=== PATIENT | male | born 1940 | race Asian ===

== ENCOUNTER 2017-04-28 23:55 | Observation (INO) | payer OTHER ==
[~2017-04-28] VITALS: Ht 152.4 cm; Wt 58.0 kg
[2017-04-29] VITALS (13 sets, daily range): BP systolic 115–159; BP diastolic 70–96; PULSE 84–105; RESP 11–23; TEMP 98.2; Ht 152.4 cm; Wt 58.0 kg
--- NOTE | 2017-04-29 00:57 | RADRPT ---
PROCEDURE: XR Chest. CLINICAL INDICATION: Chest pain TECHNIQUE: Single frontal view of the chest was obtained COMPARISON: None FINDINGS: Hypoinflation of the lungs. Patchy densities in the right upper lobe and bilateral lower lungs consi stent with atelectasis and/or infiltrates. Calcification in thoracic aorta. Minimal ectasia of the t horacic aorta apparent. The heart does not appear to be grossly enlarged. ECG leads projected over t he chest. There is no pleural effusion or pneumothorax seen. IMPRESSION: Hypoinflation of the lungs. Patchy densities in the right upper lobe and bilateral lower lungs consi stent with atelectasis and/or infiltrates. RPTAT: HJES .Maik Edward MD, MD Date Time Electronically viewed and signed by .Maik Edward MD, on 04/29/2017 00:56 .S/
[2017-04-29 00:58] LABS: BASOPHILS % 0.4 % (0.0-2.0); EOSINOPHILS # 0.1 10^3/ul (0.0-0.5); EOSINOPHILS % 1.2 % (0.0-7.0); HEMATOCRIT 42.7 % (42.0-52.0); HEMOGLOBIN 14.5 g/dl (14.0-18.0); LYMPHOCYTES # 2.7 10^3/ul (0.8-2.9); LYMPHOCYTES % 23.9 % (15.0-51.0); MEAN CORPUSCULAR HEMOGLOBIN 30.9 pg (29.0-33.0); MEAN CORPUSCULAR VOLUME 90.9 fl (82.0-101.0); MEAN PLATELET VOLUME 9.8 fl (7.4-10.4); MONOCYTES % 9.1 % (0.0-11.0); NEUTROPHIL # 7.2 10^3/ul (1.6-7.5); NEUTROPHILS % 64.8 % (39.0-77.0); PLATELET COUNT 224 10^3/UL (140-415); RED CELL DISTRIBUTION WIDTH 12.6 % (11.5-14.5); WHITE BLOOD COUNT 11.1 10^3/ul (4.8-10.8)
--- NOTE | 2017-04-29 01:09 | ERD ---
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 Patient has history of RI. Pain is mild to moderate intensity, substernal, crushing with no exacerbating relieving factors. No nausea no vomiting no chills. No other current complaints. ROS All systems reviewed and are negative except as per history of present illness. Allergies Allergies: Coded Allergies: No Known Drug Allergy (Verified Allergy, Unknown, 04/29/17) Physical Exam Vitals Vital Signs Date Time Temp Pulse Resp B/P Pulse Ox O2 Delivery O2 Flow Rate FiO2 04/29/17 00:00 97.0 85 18 134/68 98 Physical Exam Const: [] Head: Atraumatic Eyes: Normal Conjunctiva ENT: Normal External Ears, Nose and Mouth. Neck: Full range of motion..~ No meningismus. Resp: Clear to auscultation bilaterally Cardio: Regular rate and rhythm, no murmurs Abd: Soft, non tender, non distended. Normal bowel sounds Skin: No petechiae or rashes Back: No midline or flank tenderness Ext: No cyanosis, or edema Neur: Awake and alert Psych: Normal Mood and Affect Result Diagram: 04/29/177 04/29/177 Results 24 hrs Laboratory Tests Test 04/29/17 00:37 White Blood Count 11.110^3/ul Red Blood Count 4.7010^6/ul Hemoglobin 14.5g/dl Hematocrit 42.7% Mean Corpuscular Volume 90.9fl Mean Corpuscular Hemoglobin 30.9pg Mean Corpuscular Hemoglobin Concent 34.0g/dl Red Cell Distribution Width 12.6% Platelet Count 51849^3/UL Mean Platelet Volume 9.8fl Neutrophils % 64.8% Lymphocytes % 23.9% Monocytes % 9.1% Eosinophils % 1.2% Basophils % 0.4% Nucleated Red Blood Cells % 0.0/100WBC Neutrophils # 7.210^3/ul Lymphocytes # 2.710^3/ul Monocytes # 1.010^3/ul Eosinophils # 0.110^3/ul Basophils # 0.010^3/ul Nucleated Red Blood Cells # 0.010^3/ul Sodium Level 140mmol/L Potassium Level 3.2mmol/L Chloride Level 106mmol/L Carbon Dioxide Level 22mmol/L Anion Gap 15 Blood Urea Nitrogen 22mg/dl Creatinine 1.26mg/dl Glucose Level 77mg/dl Calcium Level 9.3mg/dl Creatine Kinase 238IU/L Creatine Kinase Index 0.4 Creatinine Kinase MB (Mass) 1.01ng/ml Troponin I < 0.012ng/ml Current Medications Medications (Trade) Dose Ordered Sig/Alex Route PRN Reason Start Time Stop Time Status Last Admin Dose Admin Azithromycin 500 mg 500 mg ONCE STAT PO 04/29/17 02:18 04/29/17 02:22 DC Ceftriaxone Sodium (Rocephin) 50 ml @ 100 mls/hr ONCE STAT IVPB 04/29/17 02:18 04/29/17 02:47 Miscellaneous Information (* Miscellaneous Pharmacy Order) Discontinue current oral sulfonylur... ONCE ONCE XX 04/29/17 02:30 04/29/17 02:31 UNV Diagnostic Test (Pha) (Accu-Chek) 1 ea 02 XX 04/30/17 02:00 UNV Miscellaneous Information (* Miscellaneous Pharmacy Order) HYPOGLYCEMIA PROTOCOL w... ONCE ONCE XX 04/29/17 02:30 04/29/17 02:31 UNV Insulin Aspart (Novolog Insulin Pen) NOVOLOG *MILD* ALGORITHM WITH MEALS BEDTIME SC 04/29/17 08:00 UNV Miscellaneous Information (* Miscellaneous Pharmacy Order) Discontinue all previ... ONCE ONCE XX 04/29/17 02:30 04/29/17 02:31 UNV Insulin Detemir (Levemir) 8 unit Q24H SC 04/29/17 02:30 UNV Aspirin (Aspirin) 81 mg DAILY PO 04/29/17 09:00 UNV Acetaminophen (Tylenol Tab) 650 mg Q4H PRN PO pain/fever 04/29/17 03:00 UNV Ondansetron HCl (Zofran Inj) 4 mg Q4H PRN IV nausea 04/29/17 03:00 UNV Morphine Sulfate (morphine) 2 mg Q2H PRN IV pain 04/29/17 03:00 UNV Hydralazine HCl (Apresoline) 25 mg Q6H PRN PO sbp>160 04/29/17 03:00 UNV Guaifenesin/ Dextromethorphan (Robitussin Dm Liquid Cup) 10 ml Q4H PRN PO cough 04/29/17 03:00 UNV Procedures/MDM EKG: Rate/Rhythm: [Normal Sinus Rhythm] QRS, ST, T-waves: [No changes consistent w/ acute ischemia] Impression: [No evidence of ischemia or arrhythmia] Chest X-ray 1V Interpreted by me: Soft Tissue: No acute abnormalities Bones: No acute abnormalities Mediastinum/Cardiac Silhouette/Lungs: Patchy infiltrates bilaterally Patient's symptoms are concerning for cardiac cause will require inpatient workup and continuous monitoring. Further w/u for ischemia, arrhythmia, PE or dissection will be deferred to the inpatient team. Treated for bilateral pneumonia with broad-spectrum antibiotics post blood culture Accepting Care Team: Current data and ongoing care discussed. Time: 1 AM Primary Provider: Hospitalist Consulting: [XOXOXO] Outstanding Data: none Departure Diagnosis: Primary Impression: Chest pain Chest pain type: unspecified Qualified Code: R07.9 - Chest pain, unspecified type Additional Impression: Bilateral pneumonia Pneumonia type: due to unspecified organism Lung location: unspecified part of lung Qualified Code: J18.9 - Pneumonia of both lungs due to infectious organism, unspecified part of lung Condition: Serious ZAHRA CAMPBELL Apr 29, 2017 01:09
[2017-04-29 01:11] LABS: CREATINE KINASE 238 IU/L (23-200)
[2017-04-29 01:25] LABS: CK-MB 1.01 ng/ml (0.0-2.4); TROPONIN-I < 0.012 ng/ml (0.00-0.12)
[2017-04-29] MEDS ORDERED: CEFTRIAXONE 1 GM/50 ML (PMX) 50 ML IVPB STA (02:18)
[2017-04-29] MEDS ORDERED: AZITHROMYCIN 250 MG TAB PO STA (02:18)
--- NOTE | 2017-04-29 02:32 | QN ---
Documentation Comment H&P dict a/p 1. cards chest pain (H=2, E=0, A=2, R=2, T=0), serial trop, risk factor modification, cards eval 2. dm 3. htn 4. pvd TRAV CORONA MD Apr 29, 2017 02:32
[2017-04-29 02:34] LABS: CALCIUM 9.3 mg/dl (8.4-10.2); CREATININE 1.26 mg/dl (0.61-1.24); POTASSIUM 3.2 mmol/L (3.5-5.1)
[2017-04-29] MEDS ORDERED: SPIR25TA PO (02:47)
[2017-04-29] MEDS ORDERED: CARV3.1260 PO (02:47)
[2017-04-29] MEDS ORDERED: SIMV20TA2 PO (02:47)
[2017-04-29] MEDS ORDERED: SITA100T8 PO (02:47)
[2017-04-29] MEDS ORDERED: MELO-216 PO (02:47)
[2017-04-29] MEDS ORDERED: ISOS60TA PO (02:47)
[2017-04-29] MEDS ORDERED: FURO20TA3 PO (02:47)
[2017-04-29] MEDS ORDERED: CILO100T PO (02:47)
[2017-04-29] MEDS ORDERED: CLOP75TA28 PO (02:47)
[2017-04-29] MEDS ORDERED: ALFU10TA2 PO (02:47)
[2017-04-29] MEDS ORDERED: MONT10TA24 PO (02:47)
[2017-04-29] MEDS ORDERED: ONDANSETRON 4 MG INJ IV PRN (03:00)
[2017-04-29] MEDS ORDERED: GUAIFENESIN/DM 5ML CUP PO PRN (03:00)
[2017-04-29] MEDS ORDERED: morphine 2 MG INJ IV PRN (03:00)
[2017-04-29] MEDS ORDERED: ACETAMINOPHEN 325 MG TAB PO PRN ×2 (03:00→17:00)
[2017-04-29] MEDS ORDERED: DEXTROSE 50% 50 ML SYRINGE IV PRN ×2 (03:00)
[2017-04-29] MEDS ORDERED: GLUCOSE GEL 15 GRAM TUBE BUCCAL PRN (03:00)
[2017-04-29] MEDS ORDERED: GLUCOSE GEL 15 GRAM TUBE PO PRN ×2 (03:00)
[2017-04-29] MEDS ORDERED: GLUCAGON 1 MG INJ IM PRN (03:00)
[2017-04-29] MEDS: INSULIN DETEMIR [LEVEMIR] 3ML CART SC SCH (04:18)
[2017-04-29] MEDS: POTASSIUM CHLORIDE (SR) 20 MEQ TAB PO SCH ×4 (04:22→08:02)
[2017-04-29 05:59] LABS: CREATINE KINASE 173 IU/L (23-200)
[2017-04-29 06:26] LABS: CK-MB 0.93 ng/ml (0.0-2.4); TROPONIN-I < 0.012 ng/ml (0.00-0.12)
[2017-04-29] MEDS: INSULIN ASPART [NOVOLOG] 3 ML PEN SC SCH ×3 (07:21→21:00)
--- NOTE | 2017-04-29 07:56 | HP ---
DATE OF ADMISSION: 04/28/2017 CHIEF COMPLAINT: Chest pain. HISTORY OF PRESENTING ILLNESS: The patient presents to the emergency room at [facility] a 2-hour history of chest pain which he describes as central and crushing with some associated sh ortness of breath. No nausea, vomiting, diaphoresis. PAST MEDICAL HISTORY: Significant for coronary artery disease, status post coronary artery bypass g rafting, diabetes, hypertension, hyperlipidemia, peripheral vascular disease. MEDICATIONS: As outpatient include: 1. Insulin, unknown type or dose. 2. Zocor 20 mg daily. 3. Lasix 20 mg daily. 4. Coreg 3.125 mg b.i.d. 5. Pletal 50 mg daily. 6. Aldactone 25 mg daily. 7. Other undisclosed medications, but the patient cannot recall. ALLERGIES: NO KNOWN DRUG ALLERGIES. SOCIAL HISTORY: The patient lives at home with his son and [id number]. Independent of activit ies of daily living. Denies tobacco, alcohol or illicit drug use. FAMILY HISTORY: Noncontributory. REVIEW OF SYSTEMS: Five systems reviewed and found not to be revealing. PHYSICAL EXAMINATION: VITAL SIGNS: Blood is 134/68, pulse rate 85, respirations 18, temperature is 97. GENERAL: Elderly man in no acute distress. Alert and oriented x3, speaking only. HEENT: Normocephalic, atraumatic without evident scleral icterus, perioral cyanosis. Mucous membra uma are moist. NECK: Soft and supple without masses. No evidence of jugular venous distention or carotid bruits. CHEST: Clear to auscultation and percussion bilaterally. HEART: Regular rate and rhythm, S1, S2, no added sounds. ABDOMEN: Soft, nontender, nondistended without palpable hepatosplenomegaly. EXTREMITIES: Without clubbing, cyanosis or edema. SKIN: Without rashes. NEUROLOGIC: Grossly intact. LABORATORY STUDIES: Reveal hemoglobin 14.5 g/dL, white count 11,100, platelets of 224,000. BMP is pending. Troponin is negative. EKG does not reveal any ischemic changes. Chest x-ray shows no acu te cardiopulmonary disease by my read though the radiologist calls patchy densities in the right upp er lobe consistent with possible infiltrates versus atelectasis. ASSESSMENT AND PLAN: 1. Cardiac: The patient with chest pain. We will plan to further evaluate with serial troponins, echocardiogram, stress testing and cardiology evaluation. 2. Pulmonary: Patchy infiltrates. Plan CT scan of chest to further evaluate. 3. Diabetes: Manage with Accu-Cheks and sliding scale. Dictated By: TRAV CORONA MD RER/NTS Conf#: [id number] DID#: [id number]
[2017-04-29] MEDS ORDERED: CILOSTAZOL 100 MG TAB PO SCH (09:00)
[2017-04-29] MEDS ORDERED: CLOPIDOGREL 75 MG TAB PO SCH (09:00)
--- NOTE | 2017-04-29 09:05 | RADRPT ---
PROCEDURE: CT Chest without IV contrast - high-resolution CLINICAL INDICATION: Patchy infiltrates on x-ray TECHNIQUE: CT of the chest without IV contrast. High resolution images obtained during both deep i nspiration and full expiration. Coronal and sagittal reformatted images. One or more of the followin g dose reduction techniques were used: automated exposure control, adjustment of the mA and/or kV ac cording to patient size, use of iterative reconstruction technique. DICOM images are available. CTDI 10.24, 3.23 mGy, DLP 480.01 mGy-cm. COMPARISON: Chest x-ray, 04/29/2017 FINDINGS: Lungs: Areas of interstitial thickening and mild traction bronchiectasis are seen bilaterally, pred ominantly in the lung periphery and at the lung bases, suggestive of mild pulmonary fibrosis. No foc al acute infiltrate, pleural effusion, pulmonary edema or pneumothorax is identified. No suspicious pulmonary nodule or mass lesion is identified. Cardiovascular: Normal heart size. Coronary arterial and aortic atherosclerotic calcifications. No thoracic aortic aneurysm. Lymph nodes: No adenopathy. Mediastinum: Normal Upper abdomen: Scattered colonic diverticula, without diverticulitis. Musculoskeletal: Degenerative enthesopathy of the spine. Other: None IMPRESSION: 1. Findings compatible with mild pulmonary fibrosis, as above. 2. No mass, lymphadenopathy, or focal acute infiltrate is seen. 3. Coronary arterial and aortic atherosclerotic calcifications are present. 4. Scattered colonic diverticula are seen without diverticulitis. RPTAT: AAQQ .Diaz Ramos MD, MD Date Time Electronically viewed and signed by .Diaz Ramos MD, on 04/29/2017 09:05 .R/
[2017-04-29] MEDS: SPIRONOLACTONE 25 MG TAB PO SCH (09:09)
[2017-04-29] MEDS: ISOSORBIDE MONONITRATE(SR)60 MG TAB PO SCH (09:10)
[2017-04-29] MEDS: ATORVASTATIN 10 MG TAB PO SCH (09:11)
[2017-04-29] MEDS: ASPIRIN 81 MG TAB PO SCH (09:13)
[2017-04-29 11:15] LABS: CALCIUM 9.1 mg/dl (8.4-10.2); CREATININE 1.03 mg/dl (0.61-1.24); MAGNESIUM 2.2 mg/dl (1.7-2.5); POTASSIUM 4.5 mmol/L (3.5-5.1)
[2017-04-29 11:24] LABS: CREATINE KINASE 159 IU/L (23-200)
[2017-04-29 11:43] LABS: CK-MB 0.89 ng/ml (0.0-2.4); TROPONIN-I < 0.012 ng/ml (0.00-0.12)
--- NOTE | 2017-04-29 12:57 | RADRPT ---
Echocardiogram Report Patient Name: GLADIS CARLSON Gender: Male Date: 1940 Study Date: 29-Apr-2017 Information Systems Audit Manager: Steve Ruiz [facility] Location: [facility] Ref. Physician: TRAV CORONA Quality: Good Procedures: Transthoracic echocardiogram with complete 2D, M-Mode, and doppler examination. Indications: Chest Pain. 2D/M Mode Doppler Measurement Value Normal Ranges Measurement Value Normal Ranges LVIDd 2D 4.7 3.5 - 5.6 cm AV Peak Gage 1.7 m/sec LVIDs 2D 2.6 2.1 - 4.1 cm AV Peak PG 12.0 mmHg LVPWd 2D 1.2 0.6 - 1.1 cm LVOT Peak Gage 0.7 m/sec IVSd 2D 1.2 0.6 - 1.1 cm LVOT Peak PG 2.1 mmHg AoR Diam 2D 3.4 2.0 - 3.7 cm MV E Peak Gage 0.6 m/sec EDV 2D 101.5 cm3 MV A Peak Gage 1.1 m/sec ESV 2D 17.3 cm3 MV E/A 0.5 LA Dimen 2D 2.7 2.3 - 4.0 cm MV Decel Time 90 msec MV Decel Chaffee 6 MV E/A 0.5 TR Peak Gage 2.7 m/sec TR Peak PG 29.4 mmHg RVSP 32.0 mmHg Findings Left Ventricle: Normal left ventricular cavity size. Mild concentric left ventricular hypertrophy. Mild left ventricular systolic dysfunction. Ejection fraction is visually estimated at 4045 %. Tissue Doppler/Mitral Doppler indices are consistent with impaired relaxation (Stage I diastolic dysfunction). Right Ventricle: Normal right ventricular size. Normal right ventricular systolic function. Left Atrium: The left atrium is normal in size. Right Atrium: The right atrium is normal in size. Mitral Valve: Mitral valve leaflets appear mildly thickened. Mild mitral annular calcification. Mild mitral valve regurgitation. Aortic Valve: No significant aortic stenosis or insufficiency. Aortic cusps appear mildly calcified. Tricuspid Valve: Normal appearance of the tricuspid valve. Estimated peak PA systolic pressure 32 mmHg. There is mild tricuspid regurgitation. Pulmonic Valve: Normal pulmonic valve appearance. Pericardium: Normal pericardium with no significant pericardial effusion. Aorta: Normal aortic root. IVC: Normal size and normal respiratory collapse consistent with normal right atrial pressure. Conclusions 1.Normal left ventricular cavity size. Mild concentric left ventricular hypertrophy. Mild left ventricular systolic dysfunction. Ejection fraction is visually estimated at 40-45 %. Tissue Doppler/Mitral Doppler indices are consistent with impaired relaxation (Stage I diastolic dysfunction). 2.Normal right ventricular size. Normal right ventricular systolic function. 3.The left atrium is normal in size. 4.The right atrium is normal in size. 5.Mild mitral valve regurgitation. 6.Estimated peak PA systolic pressure 32 mmHg. There is mild tricuspid regurgitation. 7.No significant aortic stenosis or insufficiency. 8.Normal pericardium with no significant pericardial effusion. Electronically Signed By: Joshua Collins 29-Apr-2017 12:56:34 -0800 Patient Name: GLADIS CARLSON Study Date: 29-Apr-2017 [id number]
[2017-04-29] MEDS ORDERED: REGADENOSON 0.4 MG/5 ML SYG ONE (14:10)
--- NOTE | 2017-04-29 14:15 | CONS ---
Date/Time of Note Date/Time of Note DATE: 04/29/17 TIME: 13:45 Assessment/Plan Assessment/Plan Additional Assessment/Plan Chest pain Hypertension Diabetes Cardiomyopathy with ejection fraction 40-45% Peripheral arterial disease based on history Left bundle branch block on ECG -Patient with intermittent symptoms off and on over the past 2 years. Serial cardiac enzymes remain negative, echocardiogram with cardiomyopathy with ejection fraction 40-45%. Continue antiplatelet therapy, statin therapy, blood pressure control, nuclear cardiac perfusion study has been ordered. Consultation Date/Type/Reason Admit Date/Time Type of Consultation: cv Reason for Consultation Chest pain Hx of Present Illness This is a 77-year-old male past medical history of hypertension, diabetes, dyslipidemia, peripheral arterial disease who presents with symptoms of chest discomfort yesterday. Patient has been having chest pain going on for 2 years now. Symptoms at times at rest. Activity does not usually exacerbate his symptoms of chest pain. Yesterday evening, patient with symptoms of chest discomfort. There was no associated shortness of breath or nausea. Because of the severity of the symptoms, he came to the emergency room for evaluation and care. He currently denies any chest pain or shortness of breath. 12 point review of systems was performed with all pertinent positives and negatives mentioned above and all else is negative Past Medical History Medical History: diabetes, high cholesterol, hypertension, other (Peripheral arterial disease) Family History Significant Family History: no pertinent family hx Social History Alcohol Use: none Smoking Status: Former smoker Exam/Review of Systems Vital Signs Vitals Vital Signs Date Time Temp Pulse Resp B/P Pulse Ox O2 Delivery O2 Flow Rate FiO2 04/29/17 11:30 74 15 120/67 95 Nasal Cannula 2.0 04/29/17 06:05 98.2 Exam No apparent distress Constitutional: alert, oriented Head: normocephalic Neck: supple Respiratory: other (Coarse breath sounds bilaterally, no wheezing) Cardiovascular: other (S1-S2 heard), regular rate and rhythm, systolic murmur Gastrointestinal: bowel sounds, non-tender, soft Extremities: edema (Trivial) Results Result Diagram: 04/29/17 0037 04/29/17 1032 Results 24 hrs Laboratory Tests Test 04/29/17 00:37 04/29/17 03:01 04/29/17 04:17 04/29/17 05:20 White Blood Count 11.1 H Red Blood Count 4.70 Hemoglobin 14.5 Hematocrit 42.7 Mean Corpuscular Volume 90.9 Mean Corpuscular Hemoglobin 30.9 Mean Corpuscular Hemoglobin Concent 34.0 Red Cell Distribution Width 12.6 Platelet Count 224 Mean Platelet Volume 9.8 Neutrophils % 64.8 Lymphocytes % 23.9 Monocytes % 9.1 Eosinophils % 1.2 Basophils % 0.4 Nucleated Red Blood Cells % 0.0 Neutrophils # 7.2 Lymphocytes # 2.7 Monocytes # 1.0 H Eosinophils # 0.1 Basophils # 0.0 Nucleated Red Blood Cells # 0.0 Sodium Level 140 Potassium Level 3.2 L Chloride Level 106 Carbon Dioxide Level 22 Anion Gap 15 Blood Urea Nitrogen 22 H Creatinine 1.26 H Glucose Level 77 Calcium Level 9.3 Creatine Kinase 238 H 173 Creatine Kinase Index 0.4 0.5 Creatinine Kinase MB (Mass) 1.01 0.93 Troponin I < 0.012 < 0.012 B-Type Natriuretic Peptide 75 Bedside Glucose 144 Test 04/29/17 07:21 04/29/17 10:32 04/29/17 11:21 Bedside Glucose 127 97 Sodium Level 140 Potassium Level 4.5 Chloride Level 108 Carbon Dioxide Level 25 Anion Gap 12 Blood Urea Nitrogen 16 Creatinine 1.03 Glucose Level 132 # Calcium Level 9.1 Magnesium Level 2.2 Creatine Kinase 159 Creatine Kinase Index 0.6 Creatinine Kinase MB (Mass) 0.89 Troponin I < 0.012 Medications Medications Current Medications Diagnostic Test (Pha) (Accu-Chek) 1 ea 02 XX ; Start 04/30/17 at 02:00 Insulin Detemir (Levemir) 8 unit Q24H SC Last administered on 04/29/17 04:18; Admin Dose 8 UNIT; Start 04/29/17 at 02:30 Aspirin (Aspirin) 81 mg DAILY PO Last administered on 04/29/17 09:13; Admin Dose 81 MG; Start 04/29/17 at 09:00 Acetaminophen (Tylenol Tab) 650 mg Q4H PRN PO pain/fever; Start 04/29/17 at 03: 00 Ondansetron HCl (Zofran Inj) 4 mg Q4H PRN IV nausea; Start 04/29/17 at 03:00 Morphine Sulfate (morphine) 2 mg Q2H PRN IV pain; Start 04/29/17 at 03:00 Hydralazine HCl (Apresoline) 25 mg Q6H PRN PO sbp>160; Start 04/29/17 at 03:00 Guaifenesin/ Dextromethorphan (Robitussin Dm Liquid Cup) 10 ml Q4H PRN PO cough ; Start 04/29/17 at 03:00 Miscellaneous Information 1 ea NOTE XX ; Start 04/29/17 at 03:00 Glucose (Glutose) 15 gm Q15M PRN PO DECREASED GLUCOSE; Start 04/29/17 at 03:00 Glucose (Glutose) 22.5 gm Q15M PRN PO DECREASED GLUCOSE; Start 04/29/17 at 03: 00 Dextrose (D50w Syringe) 25 ml Q15M PRN IV DECREASED GLUCOSE; Start 04/29/17 at 03:00 Dextrose (D50w Syringe) 50 ml Q15M PRN IV DECREASED GLUCOSE; Start 04/29/17 at 03:00 Glucagon (Glucagen) 1 mg Q15M PRN IM DECREASED GLUCOSE; Start 04/29/17 at 03:00 Glucose (Glutose) 15 gm Q15M PRN BUCCAL DECREASED GLUCOSE; Start 04/29/17 at 03 :00 Alfuzosin HCl (Uroxatral) 10 mg 21 PO ; Start 04/29/17 at 21:00 Carvedilol (Coreg) 3.125 mg DAILY PO Last administered on 04/29/17 09:11; Admin Dose 3.125 MG; Start 04/29/17 at 09:00 Cilostazol (Pletal) 50 mg BID PO Last administered on 04/29/17 09:10; Admin Dose 50 MG; Start 04/29/17 at 09:00 Clopidogrel Bisulfate (plaVIX) 75 mg DAILY PO Last administered on 04/29/17 09 :12; Admin Dose 75 MG; Start 04/29/17 at 09:00 Isosorbide Mononitrate (Imdur) 60 mg DAILY PO Last administered on 04/29/17 09 :10; Admin Dose 60 MG; Start 04/29/17 at 09:00 Montelukast Sodium (Singulair) 10 mg QHS PO ; Start 04/29/17 at 21:00 Spironolactone (Aldactone) 25 mg DAILY PO Last administered on 04/29/17 09:09 ; Admin Dose 25 MG; Start 04/29/17 at 09:00 Atorvastatin Calcium (Lipitor) 10 mg DAILY PO Last administered on 04/29/17t 09 :11; Admin Dose 10 MG; Start 04/29/17 at 09:00 Procedures Procedures ECG sinus rhythm, left bundle branch block, nonspecific ST abnormalities Joshua Collins DO Apr 29, 2017 14:05
[2017-04-29] MEDS ORDERED: ALBUTEROL/IPRATROPIUM (NEB) 3 ML AMP HHN PRN (14:30)
--- NOTE | 2017-04-29 16:03 | PDOCDIS ---
Discharge Instructions DIAGNOSIS Discharge Diagnosis Chest pain at rest and short of breath off and on for 2 years CONDITION Patient Condition: Fair HOME CARE INSTRUCTIONS: Diet Instructions: Diabetic and 2 gm Sodium diet ACTIVITY: Activity Restrictions: Slowly Increase Activity (activity as tolerate) FOLLOW UP/APPOINTMENTS Follow-up Plan Follow up with his PCP in 1 week REFERRALS Other Referrals Cardiac rehabilitation as an outpatient. OTHER ORDERS: Other Orders: Home oxygen using 23 hrs av day if SAO2<88% while walking ARCELIA ORTIZ MD Apr 29, 2017 16:03
[2017-04-29] MEDS ORDERED: HEPARIN 1000 UNITS/ML 10 ML INJ ONE (16:07)
[2017-04-29] MEDS ORDERED: LIDOCAINE 1% (MDV) 20 ML INJ ONE (16:07)
[2017-04-29] MEDS ORDERED: SYMB80120 INHALATION (16:08)
[2017-04-29] MEDS ORDERED: MIDAZOLAM 1 MG/ML 2 ML INJ ONE (16:08)
[2017-04-29] MEDS ORDERED: VERAPAMIL 5 MG INJ ONE (16:08)
[2017-04-29] MEDS ORDERED: FENTAnyl 50 MCG/ML VIAL ONE (16:08)
[2017-04-29] MEDS ORDERED: IODIXANOL LOCM 100 ML BTL ONE (16:32)
--- NOTE | 2017-04-29 16:35 | DS ---
Date/Time of Note Date/Time of Note DATE: 04/29/17 TIME: 16:10 Discharge Summary Admission/Discharge Info Admit Date/Time 04/28/2017 Discharge Date/Time 04/29/2017 Discharge Diagnosis Chest pain at rest and short of breath off and on for 2 years Patient Condition: Good Consults Dr. Joshua Collins Procedures Echocardiogram showed 40-45 % EF,mild elevated RVSP Hx of Present Illness This is a 77 years old [place] man with significant medical illness of hypertension,type 2 DM with dyslipidemia,PVD,chronic systolic dysfunction on Lasix ans Aldactone, He has been having short of breath at rest off and on for 2 years. He has been using diuretic at home with stable condition. Yesterday , he was admitted her due to chest tightness on both lungs and short of breath at rest. At ER,he got CTA showed mild pulmonary fibrosis but no PE nor pneumonia. Echocardiogram showed 40-45% EF and mild elevated RSVP. Normal EKG and negative serial troponin levels. His chest pain and short of breath were resolved. g. Vital Signs Date Time Temp Pulse Resp B/P Pulse Ox O2 Delivery O2 Flow Rate FiO2 04/29/17 11:30 74 15 120/67 95 Nasal Cannula 2.0 04/29/17 06:05 98.2 Const: He is alert and oriented to time ,place and person. He is not in acute distress. No pallor nor jaundice Head: Atraumatic and normocephalic. Eyes: Normal Conjunctiva ENT: Normal External Ears, Nose and Mouth. Neck: Full range of motion. No meningismus. Resp: Clear to auscultation bilaterally. No wheezes nor crackles on both lung ashby. Cardio: Regular rate and rhythm, no murmurs. Abd: Soft, non tender, non distended. Normal bowel sounds. Skin: No petechiae or rashes. Back: No midline or flank tenderness. Ext: no cyanosis, or edema Neuro: Awake and alert. No grossly neurological deficit Psych: [Normal Mood and Affect Hospital Course While he has been here,he has been given 2 L nasal canula oxygen and fluid restriction. His chest pain and short of breath were resolved. No PND nor orthopnea. No fever nor chill. CT chest showed mild pulmonary fibrosis but no pneumonia. Echocardiogram showed 40-45% EF and mild elevated RSVP. Plavix,Lipitor,Coreg ,Lasix and Aldactone resumed. Walking pulse Ox tested . If SAO2<88% while walking then he will be qualified. 2 gm sodium ,low cholesterol ,and 1800 diabetic diet Increased daily activity ( outpatient cardiac rehabilitation) Home Meds Active Scripts Nitroglycerin (Nitrostat) 0.4 Mg Subl, 0.4 MG SL Q5MIN Y for CHEST PAIN, #30 TAB 3 Refills Prov:KALENBRODIE 04/30/17 Aspirin* (Ecotrin*) 325 Mg Tablet.dr, 325 MG PO DAILY for 30 Days, #30 TAB 3 Refills Prov:ARCELIA ORTIZ MD 04/30/17 Budesonide-Formoterol Fumarate* (Symbicort*) 80-4.5 Inha, 2 PUFFS INHALATION BID for 30 Days, #1 EACH Prov:ARCELIA ORTIZ MD 04/29/17 Reported Medications Isosorbide Mononitrate* (Isosorbide Mononitrate*) 60 Mg Tab.er.24h, 60 MG PO DAILY, TAB 04/29/17 Alfuzosin Hcl* (Alfuzosin Hcl*) 10 Mg Tab.er.24h, 10 MG PO DAILY, #30 TAB.SA 04/29/17 Sitagliptin* (Januvia*) 100 Mg Tablet, 100 MG PO DAILY, #30 TAB 04/29/17 Montelukast Sodium* (Montelukast Sodium*) 10 Mg Tablet, 10 MG PO QHS, #30 TAB 04/29/17 Cilostazol* (Cilostazol*) 100 Mg Tablet, 50 MG PO BID, TAB 04/29/17 Simvastatin (Simvastatin) 20 Mg Tablet, 20 MG PO DAILY, #30 TAB 04/29/17 Spironolactone* (Aldactone*) 25 Mg Tablet, 25 MG PO DAILY, #30 TAB 04/29/17 Carvedilol* (Carvedilol*) 3.125 Mg Tablet, 3.125 MG PO DAILY, #60 TAB 04/29/17 Furosemide* (Furosemide*) 20 Mg Tablet, 20 MG PO DAILY, #60 TAB 04/29/17 Discontinued Reported Medications Clopidogrel Bisulfate (Clopidogrel) 75 Mg Tablet, 75 MG PO DAILY, #30 TAB 04/29/17 Meloxicam* (Meloxicam*) 7.5 Mg Tablet, 7.5 MG PO DAILY, #30 TAB 04/29/17 Furosemide* (Furosemide*) 20 Mg Tablet, 20 MG PO DAILY, #60 TAB 04/29/17 Follow-up Plan Follow up with his PCP in 1 week. Jawbone Breaker follow up with in 1-2 week Outpatient cardiac rehabilitation in 1-2 week Time spent on discharge: > 30 minutes Pending Labs Laboratory Tests Test 04/29/17 00:37 04/29/17 03:01 04/29/17 04:17 04/29/17 05:20 White Blood Count 11.110^3/ul (4.8-10.8) Red Blood Count 4.7010^6/ul (4.70-6.10) Hemoglobin 14.5g/dl (14.0-18.0) Hematocrit 42.7% (42.0-52.0) Mean Corpuscular Volume 90.9fl (82.0-101.0) Mean Corpuscular Hemoglobin 30.9pg (29.0-33.0) Mean Corpuscular Hemoglobin Concent 34.0g/dl (32.0-37.0) Red Cell Distribution Width 12.6% (11.5-14.5) Platelet Count 07437^3/UL (140-415) Mean Platelet Volume 9.8fl (7.4-10.4) Neutrophils % 64.8% (39.0-77.0) Lymphocytes % 23.9% (15.0-51.0) Monocytes % 9.1% (0.0-11.0) Eosinophils % 1.2% (0.0-7.0) Basophils % 0.4% (0.0-2.0) Nucleated Red Blood Cells % 0.0/100WBC (0.0-0.0) Neutrophils # 7.210^3/ul (1.6-7.5) Lymphocytes # 2.710^3/ul (0.8-2.9) Monocytes # 1.010^3/ul (0.3-0.9) Eosinophils # 0.110^3/ul (0.0-0.5) Basophils # 0.010^3/ul (0.0-0.1) Nucleated Red Blood Cells # 0.010^3/ul (0.0-0.0) Sodium Level 140mmol/L (135-144) Potassium Level 3.2mmol/L (3.5-5.1) Chloride Level 106mmol/L (97-110) Carbon Dioxide Level 22mmol/L (21-31) Anion Gap 15 (8-16) Blood Urea Nitrogen 22mg/dl (7-20) Creatinine 1.26mg/dl (0.61-1.24) Glucose Level 77mg/dl (70-220) Calcium Level 9.3mg/dl (8.4-10.2) Creatine Kinase 238IU/L (23-200) 173IU/L (23-200) Creatine Kinase Index 0.4 0.5 Creatinine Kinase MB (Mass) 1.01ng/ml (0.0-2.4) 0.93ng/ml (0.0-2.4) Troponin I < 0.012ng/ml (0.00-0.12) < 0.012ng/ml (0.00-0.12) B-Type Natriuretic Peptide 75PG/ML (0-450) Bedside Glucose 144mg/dL (70-220) Test 04/29/17 07:21 04/29/17 10:32 04/29/17 11:21 Bedside Glucose 127mg/dL (70-220) 97mg/dL (70-220) Sodium Level 140mmol/L (135-144) Potassium Level 4.5mmol/L (3.5-5.1) Chloride Level 108mmol/L (97-110) Carbon Dioxide Level 25mmol/L (21-31) Anion Gap 12 (8-16) Blood Urea Nitrogen 16mg/dl (7-20) Creatinine 1.03mg/dl (0.61-1.24) Glucose Level 132mg/dl (70-220) Calcium Level 9.1mg/dl (8.4-10.2) Magnesium Level 2.2mg/dl (1.7-2.5) Creatine Kinase 159IU/L (23-200) Creatine Kinase Index 0.6 Creatinine Kinase MB (Mass) 0.89ng/ml (0.0-2.4) Troponin I < 0.012ng/ml (0.00-0.12) Copies To: CC: Joshua Collins DO; BRODIE HIGUERA NARUCHON MD Apr 29, 2017 16:25 ARCELIA ORTIZ MD Apr 29, 2017 16:25
[2017-04-29] MEDS ORDERED: SOD CHLORIDE 0.9% 1,000 ML IV SCH (16:38)
--- NOTE | 2017-04-29 16:44 | OPR ---
Date/Time of Note Date/Time of Note DATE: 04/29/17 TIME: 16:41 Operative Report Preoperative Diagnosis cad Postoperative Diagnosis 2VCAD and LM disease Surgeon see signature line Drive In Teller none Anesthesia Type: moderate sedation Estimated Blood Loss: minimal Transfusion none Specimen none Grafts/Implants none Complications none Pt Condition Post Procedure: stable Procedure Description Operation/Procedure Performed Left heart cath right and left coronary angiography supervision/interpretation of right and left coronary angiography LVEDP measured right radial artery approach Procedure Description The patient brought to the cardiac cath lab radiology technologist after informed consent obtained. The left radial artery was cannulated using the seldinger technique and a 5F sheath was inserted. Thereafter, bilateral selective angiography was performed using a JR4 and JL 3.5catheters , respectively. The procedure was tolerated well without complication. Findings: LM - 60% distal LAD - 90% long calcified lesion, D1 - 90% mid CX - 80% ostial disease, calcified RCA - 90% mid PDA disease Plan: CABG POLLO MADISON MD Apr 29, 2017 16:44
--- NOTE | 2017-04-29 16:52 | EN ---
Date/Time of Note Date/Time of Note DATE: 04/29/17 TIME: 16:52 Event Note Cardiology Cardiology Event Note Lexiscan nuclear stress test 04/29/2017 This is a 70-year-old male who presents with chest pain with abnormal ejection fraction and ECG Baseline ECG sinus rhythm 83 bpm, left bundle branch block with QRS 120 ms, no specific ST abnormalities Baseline blood pressure 140/82 Lexiscan administered as per protocol No symptoms Peak heart rate 106 Peak blood pressure 140/82 No significant ECG changes Rare PVCs ECG interpretation uninterpretable given left bundle branch block Joshua Collins DO Apr 29, 2017 16:52
--- NOTE | 2017-04-29 16:58 | PN ---
Date/Time of Note Date/Time of Note DATE: 04/29/17 TIME: 16:48 Assessment/Plan VTE Prophylaxis VTE Prophylaxis Intervention: heparin, SCD's Lines/Catheters IV [facility]ter Type (from [facility] Sal[place] [employer] Central line still needed: No Urinary Cath still in place: No Assessment/Plan Chief Complaint/Hosp Course While he has been here,he has been given 2 L nasal canula oxygen and fluid restriction. His chest pain and short of breath were resolved. No PND nor orthopnea. No fever nor chill. CT chest showed mild pulmonary fibrosis but no pneumonia. Echocardiogram showed 40-45% EF and mild elevated RSVP. Plavix,Lipitor,Coreg ,Lasix and Aldactone resumed. Walking pulse Ox tested . If SAO2<88% while walking then he will be qualified. 2 gm sodium ,low cholesterol ,and 1800 diabetic diet Increased daily activity ( outpatient cardiac rehabilitation) Problems: (1) Chest pain Status: Acute Comment: Stress test was positive for tipple vessel disease. Plavix,Coreg,Lipitor,Lasix and Aldactone to be continued. Oxygen per nasal canula to jeep SAO2>92%. Bed rest and strictly intake and output. Fluid restriction Qualifiers: Chest pain type: chest pain due to myocardial ischemia Ischemic chest pain type: unspecified angina pectoris type Qualified Code: I20.9 - Chest pain due to myocardial ischemia, unspecified ischemic chest pain type (2) Coronary arteriosclerosis after coronary artery bypass grafting Status: Chronic Comment: Positive stress test. He is going to have CABG soon. He is admitted at telemetry. full code status. See management as mentioned as above. (3) Pulmonary fibrosis determined by high resolution computed tomography Status: Chronic Comment: DuoNeb as needed Singulair and Advair given. (4) HTN (hypertension) Status: Chronic Comment: Coreg to be continued and lisinopril added on if indicated Qualifiers: Hypertension type: essential hypertension Qualified Code: I10 - Essential hypertension (5) DM (diabetes mellitus), type 2 Status: Chronic Comment: long term care administrator Insulin and short acting insulin given. Diabetic diet Qualifiers: Diabetes mellitus usp insulin use: without usp use Laterality: unspecified laterality (6) PVD (peripheral vascular disease) Status: Chronic Comment: Pletal continued (7) Hyperlipidemia Status: Chronic Comment: Lipitor continued. Qualifiers: Hyperlipidemia type: unspecified Qualified Code: E78.5 - Hyperlipidemia, unspecified hyperlipidemia type (8) Reactive airway disease with acute exacerbation Status: Chronic Qualifiers: Asthma severity: mild Asthma persistence: intermittent Qualified Code: J45.21 - Mild intermittent reactive airway disease with acute exacerbation Assessment/Plan DuoNeb given as needed. Advair and Singulair given Cont'd Hospitalization Reason: He needs CABG at this admission due to positive tripple vessel disease Subjective 24 Hr Interval Summary Constitutional: improved, No chills, No diaphoresis, No disoriented, No febrile, No no complaints, No other, No poor po, No requiring IVF, No requiring O2 Eyes: no complaints, No discharge, No other, No pain, No redness, No visual change ENT: no complaints, No bleeding, No congestion, No discharge, No dysphagia, No other, No pain, No sore throat Respiratory: no complaints, No cough, No other, No pain, No pleuritic pain, No shortness of breath, No sputum, No wheezing Cardiovascular: no complaints, No chest pain, No edema, No lightheadedness, No orthopenea, No other, No palpitations, No paroxysmal nocturnal dyspnea Gastrointestinal: No blood, No constipation, No decreased appetite, No diarrhea , No flatus, No nausea, No no complaints, No other, No pain, No passing stool, No vomiting Genitourinary: No bleeding, No discharge, No dysuria, No flank pain, No hematuria, No no complaints, No other Musculoskeletal: No back pain, No bone/joint pain, No neck pain, No no complaints, No other, No restricted range of motion, No swelling Skin: No bruising, No erythema, No laceration, No no complaints, No other, No pruritis, No rash, No skin lesions Neurologic: No confusion, No dizziness, No focal-weakness, No headache, No no complaints, No other, No seizure, No syncope Endocrine: No dry skin, No no complaints, No other, No polydypsia, No polyuria , No temp intolerance Lymphatic: No adenopathy, No lymphadema, No no complaints, No other, No tender nodes Psychological: No anxiety, No confusion, No depression, No nl mood/affect, No no complaints, No other, No suicidal Immunologic: No immunodeficiency, No no complaints, No other, No pruritis, No rhinitis, No urticaria Exam/Review of Systems Vital Signs Vitals Vital Signs Date Time Temp Pulse Resp B/P Pulse Ox O2 Delivery O2 Flow Rate FiO2 04/29/17 11:30 74 15 120/67 95 Nasal Cannula 2.0 04/29/17 06:05 98.2 Exam Constitutional: alert, oriented, well developed, No distress, No frail, No obese Psych: No anxiety, No confusion, No depression, No nl mood/affect, No no complaints, No other, No suicidal Head: atraumatic, normocephalic Eyes: EOMI, PERRL, nl conjunctiva, nl lids, nl sclera ENMT: nl external ears & nose, nl lips & teeth, nl nasal mucosa & septum Neck: non-tender, supple Respiratory: clear to auscultation, normal air movement, No congested cough, No crackles/rales, No diminished breath sounds, No intercostal retraction, No labored breathing, No other, No respirations, No tactile fremitus, No wheezing Cardiovascular: nl pulses, regular rate and rhythm, No S3, No S4, No bruits, No diastolic murmur, No edema, No gallop, No irregular rhythm, No jugular venous distention (JVD), No murmurs/extra sounds, No other, No rub, No systolic murmur Gastrointestinal: nl liver, spleen, non-tender, soft, No ascites, No bowel sounds, No distended, No firm, No hepatomegaly, No mass , No other, No rebound or guarding, No splenomegaly, No surgical scars, No tender Musculoskeletal: nl extremities to inspection, nl gait and stance, No joint tenderness, No muscle tone, No muscle weakness, No other, No range of motion, No spine non-tender, No swelling Extremities: normal pulses, No calf tenderness, No clubbing, No cyanosis, No edema, No other, No palpable cord, No pitting pedal edema, No tenderness Neurological: DIRECTOR OF FIELD COORDINATION II-XII intact, DTR's symmetric, nl mental status, nl speech, nl strength, No confused, No focal weakness, No lethargic, No numbness, No other, No reflexes, No unresponsive Skin: nl turgor, No diaphoresis, No ecchymosis, No laceration, No other, No puncture, No rash or lesions Results Result Diagram: 04/29/17 0037 04/29/17 1032 Results 24 hrs Laboratory Tests Test 04/29/17 00:37 04/29/17 03:01 04/29/17 04:17 04/29/17 05:20 White Blood Count 11.1 H Red Blood Count 4.70 Hemoglobin 14.5 Hematocrit 42.7 Mean Corpuscular Volume 90.9 Mean Corpuscular Hemoglobin 30.9 Mean Corpuscular Hemoglobin Concent 34.0 Red Cell Distribution Width 12.6 Platelet Count 224 Mean Platelet Volume 9.8 Neutrophils % 64.8 Lymphocytes % 23.9 Monocytes % 9.1 Eosinophils % 1.2 Basophils % 0.4 Nucleated Red Blood Cells % 0.0 Neutrophils # 7.2 Lymphocytes # 2.7 Monocytes # 1.0 H Eosinophils # 0.1 Basophils # 0.0 Nucleated Red Blood Cells # 0.0 Sodium Level 140 Potassium Level 3.2 L Chloride Level 106 Carbon Dioxide Level 22 Anion Gap 15 Blood Urea Nitrogen 22 H Creatinine 1.26 H Glucose Level 77 Calcium Level 9.3 Creatine Kinase 238 H 173 Creatine Kinase Index 0.4 0.5 Creatinine Kinase MB (Mass) 1.01 0.93 Troponin I < 0.012 < 0.012 B-Type Natriuretic Peptide 75 Bedside Glucose 144 Test 04/29/17 07:21 04/29/17 10:32 04/29/17 11:21 Bedside Glucose 127 97 Sodium Level 140 Potassium Level 4.5 Chloride Level 108 Carbon Dioxide Level 25 Anion Gap 12 Blood Urea Nitrogen 16 Creatinine 1.03 Glucose Level 132 # Calcium Level 9.1 Magnesium Level 2.2 Creatine Kinase 159 Creatine Kinase Index 0.6 Creatinine Kinase MB (Mass) 0.89 Troponin I < 0.012 Imaging Free Text/Dictation Stress test showed reversible ischemia of three main vessels by Dr. Collins. Medications Medications Current Medications Diagnostic Test (Pha) (Accu-Chek) 1 ea 02 XX ; Start 04/30/17 at 02:00 Insulin Detemir (Levemir) 8 unit Q24H SC Last administered on 04/29/17 04:18; Admin Dose 8 UNIT; Start 04/29/17 at 02:30 Aspirin (Aspirin) 81 mg DAILY PO Last administered on 04/29/17 09:13; Admin Dose 81 MG; Start 04/29/17 at 09:00 Acetaminophen (Tylenol Tab) 650 mg Q4H PRN PO pain/fever; Start 04/29/17 at 03: 00 Ondansetron HCl (Zofran Inj) 4 mg Q4H PRN IV nausea; Start 04/29/17 at 03:00 Morphine Sulfate (morphine) 2 mg Q2H PRN IV pain; Start 04/29/17 at 03:00 Hydralazine HCl (Apresoline) 25 mg Q6H PRN PO sbp>160; Start 04/29/17 at 03:00 Guaifenesin/ Dextromethorphan (Robitussin Dm Liquid Cup) 10 ml Q4H PRN PO cough ; Start 04/29/17 at 03:00 Miscellaneous Information 1 ea NOTE XX ; Start 04/29/17 at 03:00 Glucose (Glutose) 15 gm Q15M PRN PO DECREASED GLUCOSE; Start 04/29/17 at 03:00 Glucose (Glutose) 22.5 gm Q15M PRN PO DECREASED GLUCOSE; Start 04/29/17 at 03: 00 Dextrose (D50w Syringe) 25 ml Q15M PRN IV DECREASED GLUCOSE; Start 04/29/17 at 03:00 Dextrose (D50w Syringe) 50 ml Q15M PRN IV DECREASED GLUCOSE; Start 04/29/17 at 03:00 Glucagon (Glucagen) 1 mg Q15M PRN IM DECREASED GLUCOSE; Start 04/29/17 at 03:00 Glucose (Glutose) 15 gm Q15M PRN BUCCAL DECREASED GLUCOSE; Start 04/29/17 at 03 :00 Alfuzosin HCl (Uroxatral) 10 mg 21 PO ; Start 04/29/17 at 21:00 Carvedilol (Coreg) 3.125 mg DAILY PO Last administered on 04/29/17 09:11; Admin Dose 3.125 MG; Start 04/29/17 at 09:00 Clopidogrel Bisulfate (plaVIX) 75 mg DAILY PO Last administered on 04/29/17 09 :12; Admin Dose 75 MG; Start 04/29/17 at 09:00 Isosorbide Mononitrate (Imdur) 60 mg DAILY PO Last administered on 04/29/17 09 :10; Admin Dose 60 MG; Start 04/29/17 at 09:00 Montelukast Sodium (Singulair) 10 mg QHS PO ; Start 04/29/17 at 21:00 Spironolactone (Aldactone) 25 mg DAILY PO Last administered on 04/29/17 09:09 ; Admin Dose 25 MG; Start 04/29/17 at 09:00 Atorvastatin Calcium (Lipitor) 10 mg DAILY PO Last administered on 04/29/17 09 :11; Admin Dose 10 MG; Start 04/29/17 at 09:00 Miscellaneous Information (* Miscellaneous Pharmacy Order) HOLD all METFORMIN ... ONCE ONCE XX ; Start 04/29/17 at 17:00; Stop 04/29/17 at 17:01 Acetaminophen (Tylenol Tab) 650 mg Q4H PRN PO NON-CARDIAC PAIN LEVEL (1-3); Start 04/29/17 at 17:00 Al Hydrox/Mg Hydrox/ Simethicone 30 ml 30 ml Q4H PRN PO GASTROINTESTINAL UPSET ; Start 04/29/17 at 17:00 Sodium Chloride (NS) 1,000 ml @ 75 mls/hr [id number] IV ; Start 04/29/17 at 16:38 ; Stop 04/29/17 at 21:37 ARCELIA ORTIZ MD Apr 29, 2017 16:58
[2017-04-29] MEDS ORDERED: HOLD all METFORMIN and METFORMIN CONTAINING medications for 48 hours post procedure. Chec XX ONE (17:00)
[2017-04-29] MEDS ORDERED: AL HYDROX/MG HYDROX/SIMETH 30 ML CUP PO PRN (17:00)
--- NOTE | 2017-04-29 18:32 | RADRPT ---
PROCEDURE: Lexiscan myocardial perfusion study CLINICAL INDICATION: 77 -year-old patient complaining of chest pain. TECHNIQUE: Lexiscan 0.4 mg intravenously separate acquisition gated myocardial perfusion SPECT usi ng Tc 99m Myoview 28.4 mCi intravenously at stress and Tc-99m Myoview, 9.9 mCi intravenously at rest was performed using the rest/stress sequence. Poststress Myoview SPECT images were obtained in the supine position. COMPARISON: No prior studies. FINDINGS: Perfusion images reveal a moderate size moderate in degree predominantly nonreversible perfusion def ect in the inferoapical, inferior and inferoseptal ruggiero. Lexiscan post stress gated SPECT images demonstrate a dyskinetic septal wall and a moderate hypokine sis of the left ventricle. IMPRESSION: 1. The type and distribution of the scintigraphic abnormalities are most consistent with a moderate size predominantly nonreversible perfusion defect involving the inferoapical, inferior and inferose ptal ruggiero. 2. Dyskinetic septal wall and a moderate hypokinesis of the remainder of the left ventricle. 3. The left ventricle ejection fraction at stress is 39%. A call report was made to Dr. Collins at 03:40 p.m. on April 29, 2017. RPTAT: HH .Nunu Zafar MD, Date Time Electronically viewed and signed by .Nunu Zafar MD, on 04/29/2017 15:43 .L/
--- NOTE | 2017-04-29 20:47 | RADRPT ---
PROCEDURE: US Carotids. CLINICAL INDICATION: bruit , preoperative TECHNIQUE: Multiple sonographic of the carotid bifurcation region and vertebral arteries were obta ined utilizing gallagher scale, duplex and color-flow imaging. The images were reviewed on a PACS worksta tion. COMPARISON: No prior studies are available for comparison. FINDINGS: Evaluation of the right carotid bifurcation region reveals mild to moderate calcific atherosclerotic disease. There is a 43% stenosis in the right carotid bulb. Evaluation of the left carotid bifurcation region reveals mild calcific atherosclerotic disease. The re is a 37% stenosis in the left common carotid artery and a 28% stenosis in the left carotid bulb r egion. There is antegrade flow within the vertebral arteries bilaterally. RIGHT CAROTID MEASUREMENTS: Common Carotid Btgkvn12.9 (cm/sec) Internal Carotid Artery - qhukexqp81.4 (cm/sec) Internal Carotid Artery - mid65.5 (cm/sec) Internal Carotid Artery - .5 (cm/sec) Internal Carotid/Common Carotid1.07 LEFT CAROTID MEASUREMENTS: Common Carotid Qhpzcy53.8 (cm/sec) Internal Carotid Artery - .8 (cm/sec) Internal Carotid Artery - mid64.3 (cm/sec) Internal Carotid Artery - ejmcwp75.2 (cm/sec) Internal Carotid/Common Carotid0.77 RPTAT: AA IMPRESSION: No evidence for hemodynamically significant stenosis in the bilateral internal carotid arteries - va lidated velocity measurements with angiographic measurements, velocity criteria are extrapolated fro m diameter data as defined by the Society of Radiologists in Ultrasound Consensus Conference Radiolo gy 2003; 229;340-346. This study does indirectly reference the measurement of the distal ICA diamet er as the denominator for stenosis measurement. Normal antegrade flow in the vertebral arteries bilaterally. .Rommel Valera MD, MD Date Time Electronically viewed and signed by .Rommel Valera MD, MD on 04/29/2017 20:47 .S/
[2017-04-29] MEDS ORDERED: ALFUZOSIN (SR) 10 MG TAB PO SCH (21:00)
[2017-04-29] MEDS ORDERED: INFLUENZA VIRUS VACCINE 0.5 ML (DISPENSING) IM* ONE (21:00)
[2017-04-29] MEDS ORDERED: MONTELUKAST 10 MG TAB PO SCH (21:00)
[2017-04-29] MEDS: SALMETEROL/FLUTICASONE 250/50 INHA INH SCH (22:20)
[2017-04-30] VITALS (9 sets, daily range): BP systolic 110–173; BP diastolic 78–86; PULSE 63–112; RESP 17–20
[2017-04-30] MEDS ORDERED: ACCU-CHEK XX SCH (02:00)
[2017-04-30] MEDS: INSULIN DETEMIR [LEVEMIR] 3ML CART SC SCH (02:33)
[2017-04-30 07:18] LABS: BASOPHILS % 0.5 % (0.0-2.0); EOSINOPHILS # 0.2 10^3/ul (0.0-0.5); EOSINOPHILS % 3.4 % (0.0-7.0); HEMATOCRIT 40.5 % (42.0-52.0); HEMOGLOBIN 13.9 g/dl (14.0-18.0); LYMPHOCYTES # 1.2 10^3/ul (0.8-2.9); MEAN CORPUSCULAR HEMOGLOBIN 31.2 pg (29.0-33.0); MEAN CORPUSCULAR HGB CONC 34.3 g/dl (32.0-37.0); MEAN PLATELET VOLUME 9.8 fl (7.4-10.4); MONOCYTE # 0.7 10^3/ul (0.3-0.9); MONOCYTES % 10.9 % (0.0-11.0); NEUTROPHIL # 3.9 10^3/ul (1.6-7.5); NEUTROPHILS % 64.9 % (39.0-77.0); PLATELET COUNT 214 10^3/UL (140-415); RED BLOOD COUNT 4.45 10^6/ul (4.70-6.10); RED CELL DISTRIBUTION WIDTH 13.3 % (11.5-14.5); WHITE BLOOD COUNT 5.9 10^3/ul (4.8-10.8)
[2017-04-30 07:43] LABS: POTASSIUM 4.3 mmol/L (3.5-5.1)
[2017-04-30 07:44] LABS: ALBUMIN 3.5 g/dl (3.3-4.9); ALBUMIN/GLOBULIN RATIO 1.06; BILIRUBIN,INDIRECT 0.5 mg/dl (0-1.1); BILIRUBIN,TOTAL 0.5 mg/dl (0.2-1.3); CALCIUM 8.9 mg/dl (8.4-10.2); CREATININE 1.06 mg/dl (0.61-1.24); TOTAL PROTEIN 6.8 g/dl (6.1-8.1)
[2017-04-30 08:16] LABS: MAGNESIUM 2.1 mg/dl (1.7-2.5)
[2017-04-30] MEDS: SALMETEROL/FLUTICASONE 250/50 INHA INH SCH (08:51)
[2017-04-30] MEDS: ATORVASTATIN 10 MG TAB PO SCH (08:52)
[2017-04-30] MEDS: SPIRONOLACTONE 25 MG TAB PO SCH (08:52)
[2017-04-30] MEDS: ASPIRIN 81 MG TAB PO SCH (08:52)
[2017-04-30] MEDS: ISOSORBIDE MONONITRATE(SR)60 MG TAB PO SCH (08:52)
[2017-04-30] MEDS: INSULIN ASPART [NOVOLOG] 3 ML PEN SC SCH ×2 (09:05→12:46)
--- NOTE | 2017-04-30 12:00 | PN ---
Date/Time of Note Date/Time of Note DATE: 04/30/17 TIME: 11:39 Assessment/Plan VTE Prophylaxis VTE Prophylaxis Intervention: SCD's Lines/Catheters IV [facility]ter [facility] (from [facility] Peripheral IV Urinary Cath still in place: No Assessment/Plan Assessment/Plan 77-year-old male with: 1. Severe coronary artery disease, status post angiogram with findings of occlusion of LM - 60% distal, LAD - 90% long calcified lesion, D1 - 90% mid, CX - 80% ostial disease, calcified, RCA - 90% mid PDA disease Recommendation from cardiology post angiogram is CABG however this morning the family and the patient himself is declining, they will be seen by cardiothoracic surgery, however the patient's daughter and the patient already asking if these lesions will be amenable to stents/multiple stents. Patient is chest pain-free, euvolemic. Tolerating p.o. meds. Further recommendations and possible discharge planning per cardiology and cardiothoracic surgery. 2. Hypertension: Continue current medications 3. Mild systolic dysfunction/ischemic cardiomyopathy, chronic. Patient euvolemic. Continue current medications 4. Hyperlipidemia: Check fasting lipid panel, continue statin therapy. 5. Peripheral vascular disease: Continue current medications, carotid Dopplers not showing a severe stenosis 6. Diabetes mellitus: Check hemoglobin A1c if not done, continue sliding scale insulin and current hypoglycemic agents. 7. Mild pulmonary fibrosis on CAT scan of the chest, patient is a former smoker , he is already on Singulair, agree with addition of Advair. Nebulizer treatments as needed. Prophylaxis: Ambulation and SCDs for DVT prophylaxis, Pepcid for GI prophylaxis. Disposition: Follow-up cardiothoracic surgery and cardiology recommendations today, depending on procedures to be done either urgently or elective will start working on discharge planning if patient stable and if appropriate. Subjective 24 Hr Interval Summary Free Text/Dictation Patient and patient's family for now declining coronary artery bypass surgery, they will rather explore stent placement if possible. Cardiology and cardiothoracic surgery will discuss and discuss with family regarding decision making. Patient remains asymptomatic, no chest pain, no nausea or vomiting. He feels that his baseline. Exam/Review of Systems Vital Signs Vitals Vital Signs Date Time Temp Pulse Resp B/P Pulse Ox O2 Delivery O2 Flow Rate FiO2 04/30/17 11:17 97.6 70 17 150/78 96 04/29/17 18:46 Room Air 125/17 11:30 2.0 Intake and Output 04/29/17 04/29/17 04/30/17 15:00 23:00 07:00 Intake Total 220 ml 120 ml Output Total 600 ml Balance -600 ml 220 ml 120 ml Exam Constitutional: alert, oriented, well developed Respiratory: clear to auscultation, normal air movement Cardiovascular: nl pulses, regular rate and rhythm Gastrointestinal: non-tender, soft Musculoskeletal: nl extremities to inspection, nl gait and stance Extremities: normal pulses, other (No edema, clubbing or cyanosis) Neurological: COLLAR TURNER II-XII intact, nl mental status, nl speech, nl strength Results Result Diagram: 04/30/17 0651 04/30/17 0651 Results 24 hrs Laboratory Tests Test 04/29/17 17:17 04/29/17 22:18 04/30/17 02:28 04/30/17 06:51 Bedside Glucose 112 176 190 White Blood Count 5.9 # Red Blood Count 4.45 L Hemoglobin 13.9 L Hematocrit 40.5 L Mean Corpuscular Volume 91.0 Mean Corpuscular Hemoglobin 31.2 Mean Corpuscular Hemoglobin Concent 34.3 Red Cell Distribution Width 13.3 Platelet Count 214 Mean Platelet Volume 9.8 Neutrophils % 64.9 Lymphocytes % 20.0 Monocytes % 10.9 Eosinophils % 3.4 Basophils % 0.5 Nucleated Red Blood Cells % 0.0 Neutrophils # 3.9 Lymphocytes # 1.2 Monocytes # 0.7 Eosinophils # 0.2 Basophils # 0.0 Nucleated Red Blood Cells # 0.0 Sodium Level 140 Potassium Level 4.3 Chloride Level 109 Carbon Dioxide Level 23 Anion Gap 12 Blood Urea Nitrogen 14 Creatinine 1.06 Glucose Level 150 Calcium Level 8.9 Phosphorus Level 4.0 Magnesium Level 2.1 Total Bilirubin 0.5 Direct Bilirubin 0.00 Indirect Bilirubin 0.5 Aspartate Amino Transf (AST/SGOT) 31 Alanine Aminotransferase (ALT/SGPT) 38 Alkaline Phosphatase 61 Total Protein 6.8 Albumin 3.5 Globulin 3.30 H Albumin/Globulin Ratio 1.06 Test 04/30/17 08:28 Bedside Glucose 190 Imaging Free Text/Dictation PROCEDURE: US Carotids. CLINICAL INDICATION: bruit , preoperative TECHNIQUE: Multiple sonographic of the carotid bifurcation region and vertebral arteries were obtained utilizing gallagher scale, duplex and color-flow imaging. The images were reviewed on a PACS workstation. COMPARISON: No prior studies are available for comparison. FINDINGS: Evaluation of the right carotid bifurcation region reveals mild to moderate calcific atherosclerotic disease. There is a 43% stenosis in the right carotid bulb. Evaluation of the left carotid bifurcation region reveals mild calcific atherosclerotic disease. There is a 37% stenosis in the left common carotid artery and a 28% stenosis in the left carotid bulb region. There is antegrade flow within the vertebral arteries bilaterally. RIGHT CAROTID MEASUREMENTS: Common Carotid Artery 65.9 (cm/sec) Internal Carotid Artery - proximal 55.4 (cm/sec) Internal Carotid Artery - mid 65.5 (cm/sec) Internal Carotid Artery - distal 34.5 (cm/sec) Internal Carotid/Common Carotid 1.07 LEFT CAROTID MEASUREMENTS: Common Carotid Artery 83.8 (cm/sec) Internal Carotid Artery - proximal 54.8 (cm/sec) Internal Carotid Artery - mid 64.3 (cm/sec) Internal Carotid Artery - distal 34.2 (cm/sec) Internal Carotid/Common Carotid 0.77 RPTAT: AA IMPRESSION: No evidence for hemodynamically significant stenosis in the bilateral internal carotid arteries - validated velocity measurements with angiographic measurements, velocity criteria are extrapolated from diameter data as defined by the Society of Radiologists in Ultrasound Consensus Conference Radiology 2003 ; 229;340-346. This study does indirectly reference the measurement of the distal ICA diameter as the denominator for stenosis measurement. Normal antegrade flow in the vertebral arteries bilaterally. .Rommel Valera MD, MD Date Time Electronically viewed and signed by .Rommel Valera MD, MD on 04/29/2017 20: 47 Medications Medications Current Medications Diagnostic Test (Pha) (Accu-Chek) 1 ea 02 XX Last administered on 04/30/17 02: 08; Admin Dose 1 EA; Start 04/30/17 at 02:00 Insulin Detemir (Levemir) 8 unit Q24H SC Last administered on 04/30/17 02:33; Admin Dose 8 UNIT; Start 04/29/17 at 02:30 Aspirin (Aspirin) 81 mg DAILY PO Last administered on 04/30/17 08:52; Admin Dose 81 MG; Start 04/29/17 at 09:00 Acetaminophen (Tylenol Tab) 650 mg Q4H PRN PO pain/fever; Start 04/29/17 at 03: 00 Ondansetron HCl (Zofran Inj) 4 mg Q4H PRN IV nausea; Start 04/29/17 at 03:00 Morphine Sulfate (morphine) 2 mg Q2H PRN IV pain; Start 04/29/17 at 03:00 Hydralazine HCl (Apresoline) 25 mg Q6H PRN PO sbp>160; Start 04/29/17 at 03:00 Guaifenesin/ Dextromethorphan (Robitussin Dm Liquid Cup) 10 ml Q4H PRN PO cough ; Start 04/29/17 at 03:00 Miscellaneous Information 1 ea NOTE XX ; Start 04/29/17 at 03:00 Glucose (Glutose) 15 gm Q15M PRN PO DECREASED GLUCOSE; Start 04/29/17 at 03:00 Glucose (Glutose) 22.5 gm Q15M PRN PO DECREASED GLUCOSE; Start 04/29/17 at 03: 00 Dextrose (D50w Syringe) 25 ml Q15M PRN IV DECREASED GLUCOSE; Start 04/29/17 at 03:00 Dextrose (D50w Syringe) 50 ml Q15M PRN IV DECREASED GLUCOSE; Start 04/29/17 at 03:00 Glucagon (Glucagen) 1 mg Q15M PRN IM DECREASED GLUCOSE; Start 04/29/17 at 03:00 Glucose (Glutose) 15 gm Q15M PRN BUCCAL DECREASED GLUCOSE; Start 04/29/17 at 03 :00 Alfuzosin HCl (Uroxatral) 10 mg 21 PO Last administered on 04/29/17 22:20; Admin Dose 10 MG; Start 04/29/17 at 21:00 Carvedilol (Coreg) 3.125 mg DAILY PO Last administered on 04/30/17 08:53; Admin Dose 3.125 MG; Start 04/29/17 at 09:00 Clopidogrel Bisulfate (plaVIX) 75 mg DAILY PO Last administered on 04/29/17 09 :12; Admin Dose 75 MG; Start 04/29/17 at 09:00; Status Future Hold Isosorbide Mononitrate (Imdur) 60 mg DAILY PO Last administered on 04/30/17 08 :52; Admin Dose 60 MG; Start 04/29/17 at 09:00 Montelukast Sodium (Singulair) 10 mg QHS PO Last administered on 04/29/17 22: 20; Admin Dose 10 MG; Start 04/29/17 at 21:00 Spironolactone (Aldactone) 25 mg DAILY PO Last administered on 04/30/17 08:52 ; Admin Dose 25 MG; Start 04/29/17 at 09:00 Atorvastatin Calcium (Lipitor) 10 mg DAILY PO Last administered on 04/30/17 08 :52; Admin Dose 10 MG; Start 04/29/17 at 09:00 Acetaminophen (Tylenol Tab) 650 mg Q4H PRN PO NON-CARDIAC PAIN LEVEL (1-3); Start 04/29/17 at 17:00 Al Hydrox/Mg Hydrox/Simethicone (Mag-Al Plus) 30 ml Q4H PRN PO GASTROINTESTINAL UPSET; Start 04/29/17 at 17:00 Salmeterol Xinafoate/ Fluticasone (Advair 250/50 Diskus) 1 inh BID INH Last administered on 04/30/17 08:51; Admin Dose 1 INH; Start 04/29/17 at 21:00 Procedures Procedures Echocardiogram Report Patient Name: GLADIS CARLSON Gender: Male Date: 1940 Study Date: 29-Apr-2017 Commissions Analyst: Steve Ruiz RDCS Location: [facility] Ref. Physician: TRAV CORONA Quality: Good Procedures: Transthoracic echocardiogram with complete 2D, M-Mode, and doppler examination. Indications: Chest Pain. 2D/M Mode Doppler Measurement Value Normal Ranges Measurement Value Normal Ranges LVIDd 2D 4.7 3.5 - 5.6 cm AV Peak Gage 1.7 m/sec LVIDs 2D 2.6 2.1 - 4.1 cm AV Peak PG 12.0 mmHg LVPWd 2D 1.2 0.6 - 1.1 cm LVOT Peak Gage 0.7 m/sec IVSd 2D 1.2 0.6 - 1.1 cm LVOT Peak PG 2.1 mmHg AoR Diam 2D 3.4 2.0 - 3.7 cm MV E Peak Gage 0.6 m/sec EDV 2D 101.5 cm3 MV A Peak Gage 1.1 m/sec ESV 2D 17.3 cm3 MV E/A 0.5 LA Dimen 2D 2.7 2.3 - 4.0 cm MV Decel Time 90 msec MV Decel [place] 6 MV E/A 0.5 TR Peak Gage 2.7 m/sec TR Peak PG 29.4 mmHg RVSP 32.0 mmHg Findings Left Ventricle: Normal left ventricular cavity size. Mild concentric left ventricular hypertrophy. Mild left ventricular systolic dysfunction. Ejection fraction is visually estimated at 4045 %. Tissue Doppler/Mitral Doppler indices are consistent with impaired relaxation (Stage I diastolic dysfunction). Right Ventricle: Normal right ventricular size. Normal right ventricular systolic function. Left Atrium: The left atrium is normal in size. Right Atrium: The right atrium is normal in size. Mitral Valve: Mitral valve leaflets appear mildly thickened. Mild mitral annular calcification. Mild mitral valve regurgitation. Aortic Valve: No significant aortic stenosis or insufficiency. Aortic cusps appear mildly calcified. Tricuspid Valve: Normal appearance of the tricuspid valve. Estimated peak PA systolic pressure 32 mmHg. There is mild tricuspid regurgitation. Pulmonic Valve: Normal pulmonic valve appearance. Pericardium: Normal pericardium with no significant pericardial effusion. Aorta: Normal aortic root. IVC: Normal size and normal respiratory collapse consistent with normal right atrial pressure. Conclusions 1. Normal left ventricular cavity size. Mild concentric left ventricular hypertrophy. Mild left ventricular systolic dysfunction. Ejection fraction is visually estimated at 40-45 %. Tissue Doppler/Mitral Doppler indices are consistent with impaired relaxation (Stage I diastolic dysfunction). 2. Normal right ventricular size. Normal right ventricular systolic function. 3. The left atrium is normal in size. 4. The right atrium is normal in size. 5. Mild mitral valve regurgitation. 6. Estimated peak PA systolic pressure 32 mmHg. There is mild tricuspid regurgitation. 7. No significant aortic stenosis or insufficiency. 8. Normal pericardium with no significant pericardial effusion. Electronically Signed By: Joshua Collins 29-Apr-2017 12:56:34 -0800 Date/Time of Note Date/Time of Note DATE: 04/29/17 TIME: 16:41 Operative Report Preoperative Diagnosis cad Postoperative Diagnosis 2VCAD and LM disease Surgeon see signature line [employer] Supervisor none Anesthesia Type: moderate sedation Estimated Blood Loss: minimal Transfusion none Specimen none Grafts/Implants none Complications none Pt Condition Post Procedure: stable Procedure Description Operation/Procedure Performed Left heart cath right and left coronary angiography supervision/interpretation of right and left coronary angiography LVEDP measured right radial artery approach Procedure Description The patient brought to the dental laboratory technician after informed consent obtained. The left radial artery was cannulated using the seldinger technique and a 5F sheath was inserted. Thereafter, bilateral selective angiography was performed using a JR4 and JL 3.5catheters , respectively. The procedure was tolerated well without complication. Findings: LM - 60% distal LAD - 90% long calcified lesion, D1 - 90% mid CX - 80% ostial disease, calcified RCA - 90% mid PDA disease Plan: CABG BRODIE HIGUERA Apr 30, 2017 11:49
[2017-04-30 12:26] LABS: CHOL/HDL RATIO 1.7 RATIO
--- NOTE | 2017-04-30 14:26 | DS ---
Date/Time of Note Date/Time of Note DATE: 04/30/17 TIME: 14:12 Discharge Summary Admission/Discharge Info Admit Date/Time Apr 29, 2017 at 02:45 Discharge Date/Time Apr Discharge Diagnosis 1.CAD S/P CABG 2.Chest pain due to CAD S/P Cardiac Catheterization with severe triple vessel disease. PTCA is non amenable. 3Chronic Systolic Dysfunction with 40-45% EF 4.Hypertensive cardiomyopathy 5.Type 2 diabetic mellitus with dyslipidemia. 6.PVD Patient Condition: Good Consults Dr. Joshua Collins who did cardiac catheterization on 04/29/2017 Hx of Present Illness This is a 77 years old [place] man with significant medical illness of hypertension,type 2 DM with dyslipidemia,PVD,chronic systolic dysfunction on Lasix ans Aldactone, He has been having short of breath at rest off and on for 2 years. He has been using diuretic at home with stable condition. Yesterday , he was admitted her due to chest tightness on both lungs and short of breath at rest. At ER,he got CTA showed mild pulmonary fibrosis but no PE nor pneumonia. Echocardiogram showed 40-45% EF and mild elevated RSVP. Normal EKG and negative serial troponin levels. His chest pain and short of breath were resolved. Hospital Course VS - Last 72 Hours, by Label Date Time Temp Pulse Resp B/P Pulse Ox O2 Delivery O2 Flow Rate FiO2 04/30/17 12:12 63 04/30/17 11:17 97.6 70 17 150/78 96 04/30/17 08:21 97.6 79 19 155/78 95 04/30/17 08:04 75 04/30/17 04:22 97.9 82 20 110/79 98 04/30/17 04:13 83 04/30/17 00:07 112 04/29/17 23:52 98.3 104 20 119/70 97 04/29/17 20:18 103 04/29/17 19:46 98.0 103 20 159/96 95 04/29/17 19:14 105 04/29/17 18:46 98 17 142/82 95 Room Air 04/29/17 18:31 98 18 142/88 96 Room Air 04/29/17 18:01 86 14 119/79 97 Room Air 04/29/17 17:46 88 11 115/70 98 Room Air 04/29/17 17:31 84 11 130/71 97 Room Air 04/29/17 17:16 88 11 122/78 96 Room Air 04/29/17 17:01 92 23 127/76 96 Room Air 04/29/17 16:57 97.9 93 22 140/82 96 Room Air 04/29/17 11:30 74 15 120/67 95 Nasal Cannula 2.0 04/29/17 10:00 82 15 123/92 97 Nasal Cannula 2.0 04/29/17 08:00 74 16 130/69 98 Nasal Cannula 2.0 04/29/17 06:42 65 18 138/79 98 Nasal Cannula 2.0 04/29/17 06:41 Nasal Cannula 2 04/29/17 06:05 98.2 75 16 129/81 96 Room Air 04/29/17 03:05 98.0 73 19 121/82 97 Room Air 04/29/17 00:20 98.1 76 18 131/71 97 Room Air 04/29/17 00:00 97.0 85 18 134/68 98 Const: He is alert and oriented to time,place ans person. No PND or orthopnea. Head: Atraumatic and normocephalic head. No scalp injury. Eyes: Normal Conjunctiva ENT: Normal External Ears, Nose and Mouth. Neck: Full range of motion. No meningismus. Resp: Clear to auscultation bilaterally Cardio: Regular rate and rhythm, no murmurs Abd: Soft, non tender, non distended. Normal bowel sounds Skin: No petechiae or rashes Back: No midline or flank tenderness Ext: No cyanosis, or edema Neuro: Awake and alert. No neurological deficit. Psych: [Normal Mood and Affect] Laboratory Tests Test 04/29/17 17:17 04/29/17 22:18 04/30/17 02:28 04/30/17 06:47 Bedside Glucose 112mg/dL 176mg/dL 190mg/dL Hemoglobin A1c 9.6% Triglycerides Level 61mg/dl Cholesterol Level 91mg/dl LDL Cholesterol, Calculated 26mg/dl HDL Cholesterol 53mg/dl Cholesterol/HDL Ratio 1.7RATIO Test 04/30/17 06:51 04/30/17 08:28 04/30/17 12:39 White Blood Count 5.910^3/ul Red Blood Count 4.4510^6/ul Hemoglobin 13.9g/dl Hematocrit 40.5% Mean Corpuscular Volume 91.0fl Mean Corpuscular Hemoglobin 31.2pg Mean Corpuscular Hemoglobin Concent 34.3g/dl Red Cell Distribution Width 13.3% Platelet Count 49461^3/UL Mean Platelet Volume 9.8fl Neutrophils % 64.9% Lymphocytes % 20.0% Monocytes % 10.9% Eosinophils % 3.4% Basophils % 0.5% Nucleated Red Blood Cells % 0.0/100WBC Neutrophils # 3.910^3/ul Lymphocytes # 1.210^3/ul Monocytes # 0.710^3/ul Eosinophils # 0.210^3/ul Basophils # 0.010^3/ul Nucleated Red Blood Cells # 0.010^3/ul Sodium Level 140mmol/L Potassium Level 4.3mmol/L Chloride Level 109mmol/L Carbon Dioxide Level 23mmol/L Anion Gap 12 Blood Urea Nitrogen 14mg/dl Creatinine 1.06mg/dl Glucose Level 150mg/dl Calcium Level 8.9mg/dl Phosphorus Level 4.0mg/dl Magnesium Level 2.1mg/dl Total Bilirubin 0.5mg/dl Direct Bilirubin 0.00mg/dl Indirect Bilirubin 0.5mg/dl Aspartate Amino Transf (AST/SGOT) 31IU/L Alanine Aminotransferase (ALT/SGPT) 38IU/L Alkaline Phosphatase 61IU/L Total Protein 6.8g/dl Albumin 3.5g/dl Globulin 3.30g/dl Albumin/Globulin Ratio 1.06 Bedside Glucose 190mg/dL 171mg/dL Current Medications Medications (Trade) Dose Ordered Sig/Alex Route PRN Reason Start Time Stop Time Status Last Admin Dose Admin Azithromycin 500 mg 500 mg ONCE STAT PO 04/29/17 02:18 04/29/17 02:22 DC 04/29/17 03:20 Ceftriaxone Sodium (Rocephin) 50 ml @ 100 mls/hr ONCE STAT IVPB 04/29/17 02:18 04/29/17 02:51 DC 04/29/17 03:19 Miscellaneous Information (* Miscellaneous Pharmacy Order) Discontinue current oral sulfonylur... ONCE ONCE XX 04/29/17 02:30 04/29/17 02:51 DC Diagnostic Test (Pha) (Accu-Chek) 1 ea 02 XX 04/30/17 02:00 04/30/17 02:08 Miscellaneous Information (* Miscellaneous Pharmacy Order) HYPOGLYCEMIA PROTOCOL w... ONCE ONCE XX 04/29/17 02:30 04/29/17 02:51 DC Insulin Aspart (Novolog Insulin Pen) NOVOLOG *MILD* ALGORITHM WITH MEALS BEDTIME SC 04/29/17 08:00 04/30/17 12:46 Miscellaneous Information (* Miscellaneous Pharmacy Order) Discontinue all previ... ONCE ONCE XX 04/29/17 02:30 04/29/17 02:51 DC Insulin Detemir (Levemir) 8 unit Q24H SC 04/29/17 02:30 04/30/17 02:33 Aspirin (Aspirin) 81 mg DAILY PO 04/29/17 09:00 04/30/17 08:52 Acetaminophen (Tylenol Tab) 650 mg Q4H PRN PO pain/fever 04/29/17 03:00 Ondansetron HCl (Zofran Inj) 4 mg Q4H PRN IV nausea 04/29/17 03:00 Morphine Sulfate (morphine) 2 mg Q2H PRN IV pain 04/29/17 03:00 Hydralazine HCl (Apresoline) 25 mg Q6H PRN PO sbp>160 04/29/17 03:00 Guaifenesin/ Dextromethorphan (Robitussin Dm Liquid Cup) 10 ml Q4H PRN PO cough 04/29/17 03:00 Miscellaneous Information 1 ea NOTE XX 04/29/17 03:00 Glucose (Glutose) 15 gm Q15M PRN PO DECREASED GLUCOSE 04/29/17 03:00 Glucose (Glutose) 22.5 gm Q15M PRN PO DECREASED GLUCOSE 04/29/17 03:00 Dextrose (D50w Syringe) 25 ml Q15M PRN IV DECREASED GLUCOSE 04/29/17 03:00 Dextrose (D50w Syringe) 50 ml Q15M PRN IV DECREASED GLUCOSE 04/29/17 03:00 Glucagon (Glucagen) 1 mg Q15M PRN IM DECREASED GLUCOSE 04/29/17 03:00 Glucose (Glutose) 15 gm Q15M PRN BUCCAL DECREASED GLUCOSE 04/29/17 03:00 Alfuzosin HCl (Uroxatral) 10 mg 21 PO 04/29/17 21:00 12/5/17 22:20 Carvedilol (Coreg) 3.125 mg DAILY PO 04/29/17 09:00 04/30/17 08:53 Cilostazol (Pletal) 50 mg BID PO 04/29/17 09:00 04/29/17 16:45 DC 04/29/17 09:10 Clopidogrel Bisulfate (plaVIX) 75 mg DAILY PO 04/29/17 09:00 Future Hold 04/29/17 09:12 Isosorbide Mononitrate (Imdur) 60 mg DAILY PO 04/29/17 09:00 04/30/17 08:52 Montelukast Sodium (Singulair) 10 mg QHS PO 04/29/17 21:00 04/29/17 22:20 Spironolactone (Aldactone) 25 mg DAILY PO 04/29/17 09:00 04/30/17 08:52 Atorvastatin Calcium (Lipitor) 10 mg DAILY PO 04/29/17 09:00 04/30/17 08:52 Potassium Chloride (Klor-Con 20) 40 meq Q2H PO 04/29/17 03:30 04/29/17 07:31 DC 04/29/17 08:02 Regadenoson (Lexiscan) 0.4 mg STK-MED ONCE .ROUTE 04/29/17 14:10 04/29/17 14:11 DC 04/29/17 14:20 Albuterol/ Ipratropium (Duoneb) 3 ml Q4H WHILE AWAKE PRN HHN SHORTNESS OF BREATH 04/29/17 14:30 Heparin Sodium (Porcine) (Heparin (1000 Units/ml)) 10,000 unit STK-MED ONCE .ROUTE 04/29/17 16:07 04/29/17 16:08 DC Lidocaine 20 ml 20 ml STK-MED ONCE .ROUTE 04/29/17 16:07 04/29/17 16:08 DC Heparin Sodium/ Sodium Chloride (Heparin 1000 Units/NS (A-Line)) 500 ml @ ud STK-MED ONCE .ROUTE 04/29/17 16:08 04/29/17 16:09 DC Fentanyl (Sublimaze) 100 mcg STK-MED ONCE .ROUTE 04/29/17 16:08 04/29/17 16:09 DC Midazolam HCl (Versed) 2 mg STK-MED ONCE .ROUTE 04/29/17 16:08 04/29/17 16:09 DC Verapamil HCl (Verapamil) 5 mg STK-MED ONCE .ROUTE 04/29/17 16:08 04/29/17 16:09 DC Iodixanol (Visipaque Locm) 100 ml STK-MED ONCE .ROUTE 04/29/17 16:32 04/29/17 16:33 DC Miscellaneous Information (* Miscellaneous Pharmacy Order) HOLD all METFORMIN ... ONCE ONCE XX 04/29/17 17:00 04/29/17 17:01 DC Acetaminophen (Tylenol Tab) 650 mg Q4H PRN PO NON-CARDIAC PAIN LEVEL (1-3) 04/29/17 17:00 Al Hydrox/Mg Hydrox/ Simethicone 30 ml 30 ml Q4H PRN PO GASTROINTESTINAL UPSET 04/29/17 17:00 Sodium Chloride (NS) 1,000 ml @ 75 mls/hr [id number] IV 04/29/17 16:38 04/29/17 21:37 DC 04/29/17 17:11 Salmeterol Xinafoate/ Fluticasone (Advair 250/50 Diskus) 1 inh BID INH 04/29/17 21:00 04/30/17 08:51 Influenza Virus Vaccine (Fluzone) 0.5 ml ONCE ONCE IM* 04/29/17 21:00 04/29/17 21:01 DC Famotidine (Pepcid) 20 mg BID PO 04/30/17 21:00 While he has been here,he has been given 2 L nasal canula oxygen and fluid restriction. His chest pain and short of breath were resolved. No PND nor orthopnea. No fever nor chill. CT chest showed mild pulmonary fibrosis but no pneumonia. Echocardiogram showed 40-45% EF and mild elevated RSVP. Plavix,Lipitor,Coreg ,Lasix and Aldactone resumed. After abnormal stress test ,and then he got urgent cardiac catheterization showed severe tripple vessel disease. PTCA is not recommended but CABG . However ,the patient refuse CABG at this time. He is discharged home today with stable condition. He will se Dr. Steen ,the Cardiothoracic surgeon as an outpatient with in 1-2 week. Diet/Activity 2 gm sodium ,low cholesterol ,and 1800 diabetic diet Increased daily activity ( outpatient cardiac rehabilitation) Home Meds Active Scripts Aspirin* (Ecotrin*) 325 Mg Tablet.dr, 325 MG PO DAILY for 30 Days, #30 TAB 3 Refills Prov:ARCELIA ORTIZ MD 04/30/17 Budesonide-Formoterol Fumarate* (Symbicort*) 80-4.5 Inha, 2 PUFFS INHALATION BID for 30 Days, #1 EACH Prov:ARCELIA ORTIZ MD 04/29/17 Reported Medications Isosorbide Mononitrate* (Isosorbide Mononitrate*) 60 Mg Tab.er.24h, 60 MG PO DAILY, TAB 04/29/17 Alfuzosin Hcl* (Alfuzosin Hcl*) 10 Mg Tab.er.24h, 10 MG PO DAILY, #30 TAB.SA 04/29/17 Sitagliptin* (Januvia*) 100 Mg Tablet, 100 MG PO DAILY, #30 TAB 04/29/17 Montelukast Sodium* (Montelukast Sodium*) 10 Mg Tablet, 10 MG PO QHS, #30 TAB 04/29/17 Cilostazol* (Cilostazol*) 100 Mg Tablet, 50 MG PO BID, TAB 04/29/17 Simvastatin (Simvastatin) 20 Mg Tablet, 20 MG PO DAILY, #30 TAB 04/29/17 Spironolactone* (Aldactone*) 25 Mg Tablet, 25 MG PO DAILY, #30 TAB 04/29/17 Carvedilol* (Carvedilol*) 3.125 Mg Tablet, 3.125 MG PO DAILY, #60 TAB 04/29/17 Furosemide* (Furosemide*) 20 Mg Tablet, 20 MG PO DAILY, #60 TAB 04/29/17 Discontinued Reported Medications Clopidogrel Bisulfate (Clopidogrel) 75 Mg Tablet, 75 MG PO DAILY, #30 TAB 04/29/17 Meloxicam* (Meloxicam*) 7.5 Mg Tablet, 7.5 MG PO DAILY, #30 TAB 04/29/17 Furosemide* (Furosemide*) 20 Mg Tablet, 20 MG PO DAILY, #60 TAB 04/29/17 Follow-up Plan Follow up with his PCP in 1 week. Cardiothoracic Surgeon follow up with in 1-2 week Outpatient cardiac rehabilitation in 1-2 week Primary Care Provider Follow up with his PCP in 1 week Time spent on discharge: > 30 minutes ARCELIA ORTIZ MD Apr 30, 2017 14:25 06:47 Bedside Glucose 112mg/dL (70-220) 176mg/dL (70-220) 190mg/dL (70-220) Triglycerides Level 61mg/dl (0-149) Cholesterol Level 91mg/dl (100-200) LDL Cholesterol, Calculated 26mg/dl HDL Cholesterol 53mg/dl (31-75) Cholesterol/HDL Ratio 1.7RATIO Test 04/30/17 06:51 04/30/17 08:28 04/30/17 12:39 White Blood Count 5.910^3/ul (4.8-10.8) Red Blood Count 4.4510^6/ul (4.70-6.10) Hemoglobin 13.9g/dl (14.0-18.0) Hematocrit 40.5% (42.0-52.0) Mean Corpuscular Volume 91.0fl (82.0-101.0) Mean Corpuscular Hemoglobin 31.2pg (29.0-33.0) Mean Corpuscular Hemoglobin Concent 34.3g/dl (32.0-37.0) Red Cell Distribution Width 13.3% (11.5-14.5) Platelet Count 37954^3/UL (140-415) Mean Platelet Volume 9.8fl (7.4-10.4) Neutrophils % 64.9% (39.0-77.0) Lymphocytes % 20.0% (15.0-51.0) Monocytes % 10.9% (0.0-11.0) Eosinophils % 3.4% (0.0-7.0) Basophils % 0.5% (0.0-2.0) Nucleated Red Blood Cells % 0.0/100WBC (0.0-0.0) Neutrophils # 3.910^3/ul (1.6-7.5) Lymphocytes # 1.210^3/ul (0.8-2.9) Monocytes # 0.710^3/ul (0.3-0.9) Eosinophils # 0.210^3/ul (0.0-0.5) Basophils # 0.010^3/ul (0.0-0.1) Nucleated Red Blood Cells # 0.010^3/ul (0.0-0.0) Sodium Level 140mmol/L (135-144) Potassium Level 4.3mmol/L (3.5-5.1) Chloride Level 109mmol/L (97-110) Carbon Dioxide Level 23mmol/L (21-31) Anion Gap 12 (8-16) Blood Urea Nitrogen 14mg/dl (7-20) Creatinine 1.06mg/dl (0.61-1.24) Glucose Level 150mg/dl (70-220) Calcium Level 8.9mg/dl (8.4-10.2) Phosphorus Level 4.0mg/dl (2.5-4.9) Magnesium Level 2.1mg/dl (1.7-2.5) Total Bilirubin 0.5mg/dl (0.2-1.3) Direct Bilirubin 0.00mg/dl (0.00-0.20) Indirect Bilirubin 0.5mg/dl (0-1.1) Aspartate Amino Transf (AST/SGOT) 31IU/L (15-46) Alanine Aminotransferase (ALT/SGPT) 38IU/L (13-69) Alkaline Phosphatase 61IU/L (42-121) Total Protein 6.8g/dl (6.1-8.1) Albumin 3.5g/dl (3.3-4.9) Globulin 3.30g/dl (1.3-3.2) Albumin/Globulin Ratio 1.06 Bedside Glucose 190mg/dL (70-220) 171mg/dL (70-220) ARCELIA ORTIZ MD Apr 30, 2017 14:25 ARCELIA ORTIZ MD Apr 30, 2017 14:25 190mg/dL (70-220) 171mg/dL (70-220) ARCELIA ORTIZ MD Apr 30, 2017 14:25 (70-220) 171mg/dL (70-220) ARCELIA ORTIZ MD Apr 30, 2017 14:25
[2017-04-30] MEDS ORDERED: ASPI-781 PO (14:54)
--- NOTE | 2017-04-30 15:13 | CONS ---
Date/Time of Note Date/Time of Note DATE: 04/30/17 TIME: 15:11 Assessment/Plan Assessment/Plan Additional Assessment/Plan Obstructive coronary artery disease Hypertension Diabetes Cardiomyopathy with ejection fraction 40-45% Peripheral arterial disease based on history Left bundle branch block on ECG -Patient status post cardiac catheterization with severe triple-vessel coronary artery disease including left main. Recommendations were made for CABG. Plavix has been stopped. Patient currently chest pain-free. Continue aspirin, statin therapy, increase dose of beta-julio. Aggressive diabetes management. Consultation Date/Type/Reason Admit Date/Time Apr 29, 2017 at 02:45 Initial Consult Date Type of Consultation: cv 24 HR Interval Summary Free Text/Dictation Denies chest pain, shortness of breath or palpitations Exam/Review of Systems Vital Signs Vitals Vital Signs Date Time Temp Pulse Resp B/P Pulse Ox O2 Delivery O2 Flow Rate FiO2 04/30/17 12:12 63 04/30/17 11:17 97.6 17 150/78 96 04/29/17 18:46 Room Air 04/29/17 11:30 2.0 Intake and Output 04/29/17 04/29/17 04/30/17 15:00 23:00 07:00 Intake Total 220 ml 120 ml Output Total 600 ml Balance -600 ml 220 ml 120 ml Exam No apparent distress Constitutional: alert, oriented Head: normocephalic Respiratory: other (Coarse breath sounds bilaterally, no wheezing) Cardiovascular: other (S1-S2 heard), regular rate and rhythm Gastrointestinal: bowel sounds, non-tender, soft Extremities: edema (Trivial) Results Result Diagram: 04/30/17 0651 04/30/17 0651 Results 24 hrs Laboratory Tests Test 04/29/17 17:17 04/29/17 22:18 04/30/17 02:28 04/30/17 06:47 Bedside Glucose 112 176 190 Hemoglobin A1c 9.6 H Triglycerides Level 61 Cholesterol Level 91 L LDL Cholesterol, Calculated 26 HDL Cholesterol 53 Cholesterol/HDL Ratio 1.7 Test 04/30/17 06:51 04/30/17 08:28 04/30/17 12:39 White Blood Count 5.9 # Red Blood Count 4.45 L Hemoglobin 13.9 L Hematocrit 40.5 L Mean Corpuscular Volume 91.0 Mean Corpuscular Hemoglobin 31.2 Mean Corpuscular Hemoglobin Concent 34.3 Red Cell Distribution Width 13.3 Platelet Count 214 Mean Platelet Volume 9.8 Neutrophils % 64.9 Lymphocytes % 20.0 Monocytes % 10.9 Eosinophils % 3.4 Basophils % 0.5 Nucleated Red Blood Cells % 0.0 Neutrophils # 3.9 Lymphocytes # 1.2 Monocytes # 0.7 Eosinophils # 0.2 Basophils # 0.0 Nucleated Red Blood Cells # 0.0 Sodium Level 140 Potassium Level 4.3 Chloride Level 109 Carbon Dioxide Level 23 Anion Gap 12 Blood Urea Nitrogen 14 Creatinine 1.06 Glucose Level 150 Calcium Level 8.9 Phosphorus Level 4.0 Magnesium Level 2.1 Total Bilirubin 0.5 Direct Bilirubin 0.00 Indirect Bilirubin 0.5 Aspartate Amino Transf (AST/SGOT) 31 Alanine Aminotransferase (ALT/SGPT) 38 Alkaline Phosphatase 61 Total Protein 6.8 Albumin 3.5 Globulin 3.30 H Albumin/Globulin Ratio 1.06 Bedside Glucose 190 171 Medications Medications Current Medications Diagnostic Test (Pha) (Accu-Chek) 1 ea 02 XX Last administered on 04/30/17 02: 08; Admin Dose 1 EA; Start 04/30/17 at 02:00 Insulin Detemir (Levemir) 8 unit Q24H SC Last administered on 04/30/17 02:33; Admin Dose 8 UNIT; Start 04/29/17 at 02:30 Aspirin (Aspirin) 81 mg DAILY PO Last administered on 04/30/17 08:52; Admin Dose 81 MG; Start 04/29/17 at 09:00 Acetaminophen (Tylenol Tab) 650 mg Q4H PRN PO pain/fever; Start 04/29/17 at 03: 00 Ondansetron HCl (Zofran Inj) 4 mg Q4H PRN IV nausea; Start 04/29/17 at 03:00 Morphine Sulfate (morphine) 2 mg Q2H PRN IV pain; Start 04/29/17 at 03:00 Hydralazine HCl (Apresoline) 25 mg Q6H PRN PO sbp>160; Start 04/29/17 at 03:00 Guaifenesin/ Dextromethorphan (Robitussin Dm Liquid Cup) 10 ml Q4H PRN PO cough ; Start 04/29/17 at 03:00 Miscellaneous Information 1 ea NOTE XX ; Start 04/29/17 at 03:00 Glucose (Glutose) 15 gm Q15M PRN PO DECREASED GLUCOSE; Start 04/29/17 at 03:00 Glucose (Glutose) 22.5 gm Q15M PRN PO DECREASED GLUCOSE; Start 04/29/17 at 03: 00 Dextrose (D50w Syringe) 25 ml Q15M PRN IV DECREASED GLUCOSE; Start 04/29/17 at 03:00 Dextrose (D50w Syringe) 50 ml Q15M PRN IV DECREASED GLUCOSE; Start 04/29/17 at 03:00 Glucagon (Glucagen) 1 mg Q15M PRN IM DECREASED GLUCOSE; Start 04/29/17 at 03:00 Glucose (Glutose) 15 gm Q15M PRN BUCCAL DECREASED GLUCOSE; Start 04/29/17 at 03 :00 Alfuzosin HCl (Uroxatral) 10 mg 21 PO Last administered on 04/29/17 22:20; Admin Dose 10 MG; Start 04/29/17 at 21:00 Carvedilol (Coreg) 3.125 mg DAILY PO Last administered on 04/30/17 08:53; Admin Dose 3.125 MG; Start 04/29/17 at 09:00 Clopidogrel Bisulfate (plaVIX) 75 mg DAILY PO Last administered on 04/29/17 09 :12; Admin Dose 75 MG; Start 04/29/17 at 09:00; Status Future Hold Isosorbide Mononitrate (Imdur) 60 mg DAILY PO Last administered on 04/30/17 08 :52; Admin Dose 60 MG; Start 04/29/17 at 09:00 Montelukast Sodium (Singulair) 10 mg QHS PO Last administered on 04/29/17 22: 20; Admin Dose 10 MG; Start 04/29/17 at 21:00 Spironolactone (Aldactone) 25 mg DAILY PO Last administered on 04/30/17 08:52 ; Admin Dose 25 MG; Start 04/29/17 at 09:00 Atorvastatin Calcium (Lipitor) 10 mg DAILY PO Last administered on 04/30/17 08 :52; Admin Dose 10 MG; Start 04/29/17 at 09:00 Acetaminophen (Tylenol Tab) 650 mg Q4H PRN PO NON-CARDIAC PAIN LEVEL (1-3); Start 04/29/17 at 17:00 Al Hydrox/Mg Hydrox/Simethicone (Mag-Al Plus) 30 ml Q4H PRN PO GASTROINTESTINAL UPSET; Start 04/29/17 at 17:00 Salmeterol Xinafoate/ Fluticasone (Advair 250/50 Diskus) 1 inh BID INH Last administered on 04/30/17t 08:51; Admin Dose 1 INH; Start 04/29/17 at 21:00 Famotidine (Pepcid) 20 mg BID PO ; Start 04/30/17 at 21:00 Joshua Collins DO Apr 30, 2017 15:13
[2017-04-30] MEDS ORDERED: NIT4 SL (16:13)
[2017-04-30] MEDS ORDERED: FAMOTIDINE 20 MG TAB PO SCH (21:00)
[2017-05-01] MEDS ORDERED: ATORVASTATIN 10 MG TAB PO SCH (09:00)
== END 2017-04-30 16:20 | disposition home or self-care (01) ==
LOC: E/R 23:55 → TEL 04-29 02:45 → INTOOBSV 04-29 02:45
PROVIDERS: ADMIT Legal Medicine; ATTEND Legal Medicine
DX: I25.10 Atherosclerotic heart disease of native coronary artery without angina pectoris (principal); Z95.1 Presence of aortocoronary bypass graft; I42.9 Cardiomyopathy, unspecified; I73.9 Peripheral vascular disease, unspecified; E11.9 Type 2 diabetes mellitus without complications; E78.5 Hyperlipidemia, unspecified; J84.10 Pulmonary fibrosis, unspecified; I10 Essential (primary) hypertension; I44.7 Left bundle-branch block, unspecified; Z23 Encounter for immunization
CPT/HCPCS: 36415; 71010; 71250; 78452; 80048; 80053; 80061; 82550; 82553; 82962; 83036; 83735; 83880; 84100; 84484; 85025; 87040; 90686; 93005; 93017; 93306; 93458; 93880; 96372; 96374; A9500; A9505; C1887; J0696; J1644; J1815; J2250; J2785; J3010; J7030; Q9967; Z7500; Z7502; Z7610; G0378

== ENCOUNTER 2017-06-15 14:29 | Emergency (ER) | END 2017-06-15 19:31 | disposition home or self-care (01) ==